=== PATIENT | male | born 1960 | race Caucasian/White ===

== ENCOUNTER 2018-04-24 14:46 | Observation (INO) | payer OTHER ==
[2018-04-24 15:09] VITALS: BP 143/87; PULSE 80; RESP 14; TEMP 98.6; O2SAT 97
[2018-04-24] MEDS ORDERED: DEXAMETHASONE SOD PHOS 4 MG/ML VIAL IM ONE (17:15)
[2018-04-24] MEDS ORDERED: ORPHENADRINE INJ 60 MG/2 ML AMP IM ONE (17:15)
[2018-04-24] MEDS ORDERED: KETOROLAC TROMETHAMINE 60 MG/2 ML (IM) VIAL IM ONE (17:15)
[2018-04-24] MEDS ORDERED: ACETAMINOPHEN/HYDROcodone 325 MG/7.5 MG TAB PO ONE (17:15)
--- NOTE | 2018-04-24 17:20 | PD ---
HPI Chief Complaint: Pain: Acute or Chronic Time Seen by Provider: 16:59 Travel History International Travel<30 days: No Contact w/Intl Traveler<30days: No Traveled to known affect area: No History of Present Illness HPI 57-year-old male with a history of low back pain presents emergency department via EVAC for severe lower back pain that worsened today. Patient says it is located in his lower lumbar spine and has radiation of pain to his left leg. Says this is similar to previous episodes just more severe. Says that a couple days ago he was working and he was forced to sit on a stool for a couple of hours, longer than usual. Says since then his pain has worsened. Says he been able to control his chronic back pain with an inversion table and over-the- counter medications. Says he went to his primary care physician yesterday where he was prescribed oxycodone and given multiple injections into his back. He is not no what these medications are. Says that a couple years ago he was evaluated for possible "cage surgery" but decided to defer. Says he was like an MRI to evaluate for possible disc rupture. Denies fevers, loss of bowel or bladder function, saddle anesthesia, IV drug use, direct trauma. PFSH Past Medical History Medical History: Denies Significant Hx Diminished Hearing: No Past Surgical History Surgical History: No Previous Surgery Social History Alcohol Use: No Tobacco Use: No Substance Use: No Allergies-Medications (Allergen,Severity, Reaction): Coded Allergies: No Known Allergies (Unverified , 04/24/18) Reported Meds & Prescriptions Reported Meds & Active Scripts Active Review of Systems Except as stated in HPI: all other systems reviewed are Neg Physical Exam Narrative GENERAL: Well-developed, well-nourished in mild distress SKIN: Focused skin assessment warm/dry. HEAD: Atraumatic. Normocephalic. EYES: Pupils equal and round. No scleral icterus. No injection or drainage. ENT: No nasal bleeding or discharge. Mucous membranes pink and moist. NECK: Trachea midline. No JVD. CARDIOVASCULAR: Regular rate and rhythm. No murmur appreciated. RESPIRATORY: No accessory muscle use. Clear to auscultation. Breath sounds equal bilaterally. GASTROINTESTINAL: Abdomen soft, non-tender, nondistended. Hepatic and splenic margins not palpable. No CVA tenderness MUSCULOSKELETAL: No obvious deformities. No clubbing. No cyanosis. No edema. NEUROLOGICAL: Awake and alert. No obvious cranial nerve deficits. Motor grossly within normal limits. Normal speech. Grade 5/5 strength lower extremities. BACK:No rash. No point tenderness on palpation of the spine. Mild tenderness to palpation of his right SI joint and says this reproduces his pain. No step- offs or deformities PSYCHIATRIC: Appropriate mood and affect; insight and judgment normal. Data Data Last Documented VS Vital Signs Date Time Temp Pulse Resp B/P (MAP) Pulse Ox O2 Delivery O2 Flow Rate FiO2 04/24/18 15:09 98.6 80 14 143/87 (105) 97 Orders Orders Ketorolac Inj (Toradol Inj) (04/24/18 17:15) Orphenadrine Inj (Norflex Inj) (04/24/18 17:15) Dexamethasone Inj (Decadron Inj) (04/24/18 17:15) Acetamin-Hydrocod 325-7.5 Mg ([place]lin 7.5 (04/24/18 17:15) Ct Lumb Spine W/O Contrast (04/24/18 ) Admit Order (Ed Use Only) (04/24/18 20:26) MDM Medical Decision Making Medical Screen Exam Complete: Yes Emergency Medical Condition: Yes Differential Diagnosis Acute on chronic lumbago, sciatica, lumbar fracture, malingering Narrative Course 57-year-old male presents emergency department via evac for evaluation of acute on chronic low back pain that worsened over the last few days. Vital signs are stable. His exam findings consistent with lumbago with sciatica. No red flag signs or symptoms. Dexamethasone, Toradol, Norflex, hydrocodone administered emergency department for pain. Advised that an MRI is not emergently indicated today. Upon discharge, pt was in severe pain and I decided to order a CT to further evaluate for his back pain. Last Impressions Lumbar Spine CT 04/24/18 0000 Signed Impressions: CONCLUSION: 1. Degenerative spondylosis of the lower lumbar spine most prominently at L4-5 and L5-S1 with resultant mild central canal narrowing at both levels. 2. Moderate right neural foraminal narrowing at L5-S1 secondary to disc osteop hytes. Pt is unable to walk without significant pain. I discussed my attending and patient be admitted for intractable low back pain. I spoke with Dr. Murphy who advised to place the patient under Dr. Flores, his attending. Diagnosis Primary Impression: Lumbago Qualified Codes: M54.42 - Lumbago with sciatica, left side Additional Impression: Intractable low back pain Admitting Information Admitting Physician Requests: Observation Referrals: Mark Hernandez MD, Sohit K. MD Neurologist Neurosurgeon Patient Instructions: Acute Low Back Pain (ED), General Instructions Departure Forms: Tests/Procedures Additional Instructions: Perform light stretches of the lower back and legs, and alternate heat and ice packs. If you develop increased pain, weakness, fever, chills, or bowel or bladder issues, return to the ED for further treatment and evaluation. Follow up with your primary care physician in 2-3 days. Condition: Stable Rosita Higgins Apr 24, 2018 17:20
[2018-04-24] MEDS ORDERED: MEDR4PAK PO (17:23)
[2018-04-24] MEDS ORDERED: ROBA500T PO (17:23)
[2018-04-24] MEDS ORDERED: IBUP1TAB7 PO (17:23)
--- NOTE | 2018-04-24 19:27 | RADRPT ---
EXAM DATE: 04/24/2018 7:19 PM EDT AGE/SEX: 57 years / Male INDICATIONS: Back pain. CLINICAL DATA: This is the patient's initial encounter. Patient reports that signs and symptoms have been present for 3 days and indicates a pain score of 10/10. MEDICAL/SURGICAL HISTORY: None. None. RADIATION DOSE: 39.42 CTDI (mGy) COMPARISON: No prior exams available for comparison. TECHNIQUE: Contiguous axial images were acquired with a multirow detector CT scanner without contras t. Multiplanar reconstructions in the sagittal and coronal plane were also performed. Using automate d exposure control and adjustment of the mA and/or kV according to patient size, radiation dose was k ept as low as reasonably achievable to obtain optimal diagnostic quality images. DICOM format image data is available electronically for review and comparison. FINDINGS: Vertebrae: Normal vertebral body height. Alignment: Normal. No subluxation. Paraspinal Soft Tissues: Unremarkable. No significant adenopathy. Aorta is non-aneurysmal. T12-L1: The thecal sac has a normal diameter. No evidence of disc bulge or protrusion. The neural foramina are patent bilaterally. L1-L2: Minimal diffuse disc bulge without central canal or neural foraminal stenosis. L2-L3: Minimal disc bulge without central canal or neural foraminal stenosis. L3-L4: Small Schmorl's node in the superior endplate of L4. Mild diffuse disc bulge with slight effa cement anterior thecal sac. No significant neural foraminal stenosis. L4-L5: Diffuse disc bulge with slight ligamentum flavum hypertrophy. Effacement anterior thecal sac w ith central canal measuring 10 mm. Minimal caudal bilateral neural foraminal narrowing. L5-S1: Moderate severe disc space narrowing with vacuum disc phenomenon. Posterior disc osteophytes effacing the anterior thecal sac with central canal measuring approximately 10 mm. Mild left and mode rate right neural foraminal narrowing secondary to disc osteophytes. CONCLUSION: 1. Degenerative spondylosis of the lower lumbar spine most prominently at L4-5 and L5-S1 with result ant mild central canal narrowing at both levels. 2. Moderate right neural foraminal narrowing at L5-S1 secondary to disc osteophytes. Electronically signed by: Tim Maki MD 04/24/2018 7:26 PM EDT
[2018-04-24 20:37] VITALS: BP 138/86; PULSE 84; RESP 16; O2SAT 99
[2018-04-24] MEDS ORDERED: ACETAMINOPHEN 325 MG TAB PO PRN ×2 (21:15)
[2018-04-24] MEDS ORDERED: IBUPROFEN 600 MG TAB PO PRN (21:15)
[2018-04-24] MEDS ORDERED: SENNOSIDES 8.6 MG TAB PO PRN (21:15)
[2018-04-24] MEDS ORDERED: NALOXONE HCL 0.4 MG/ML AMP IV PUSH PRN (21:15)
[2018-04-24] MEDS ORDERED: MAGNESIUM HYDROXIDE SUSP 30 ML CUP PO PRN (21:15)
[2018-04-24] MEDS ORDERED: SODIUM CHLORIDE 0.9% FLUSH 10 ML FLUSH IV FLUSH PRN (21:15)
[2018-04-24] MEDS ORDERED: ONDANSETRON ODT 4 MG TAB PO PRN (21:30)
[2018-04-24 22:08] LABS: AUTOMATED NEUTROPHIL # 14.2 TH/MM3 (1.8-7.7); BASOPHIL # 0.1 TH/MM3 (0-0.2); BASOPHIL % 0.4 % (0.0-2.0); EOSINOPHIL % 0.1 % (0.0-4.0); HEMATOCRIT 48.6 % (39.0-51.0); HEMOGLOBIN 16.2 GM/DL (13.0-17.0); LYMPH % 8.4 % (9.0-44.0); LYMPHOCYTE # 1.3 TH/MM3 (1.0-4.8); MEAN CELL VOLUME 84.8 FL (80.0-100.0); MEAN CORPUSCULAR HEMOGLOBIN 28.3 PG (27.0-34.0); MEAN CORPUSCULAR HGB CONC 33.4 % (32.0-36.0); MEAN PLATELET VOLUME 8.1 FL (7.0-11.0); MONO % 2.2 % (0.0-8.0); MONOCYTE # 0.4 TH/MM3 (0-0.9); NEUT % 88.9 % (16.0-70.0); PLATELET COUNT 271 TH/MM3 (150-450); RED BLOOD COUNT 5.73 MIL/MM3 (4.50-5.90); RED CELL DISTRIBUTION WIDTH 14.1 % (11.6-17.2)
[2018-04-24 22:22] LABS: PROTHROMBIN TIME - PATIENT 10.6 SEC (9.8-11.6)
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
[2018-04-24 22:38] LABS: ALBUMIN 3.8 GM/DL (3.4-5.0); AST (GOT) 14 U/L (15-37); BICARBONATE 20.1 MEQ/L (21.0-32.0); BLOOD UREA NITROGEN 29 MG/DL (7-18); CALCIUM 9.3 MG/DL (8.5-10.1); CHLORIDE 110 MEQ/L (98-107); CREATININE 1.78 MG/DL (0.60-1.30); GLOMERULAR FILTRATION RATE 40 ML/MIN (>89); GLUCOSE,RANDOM 111 MG/DL (74-106); SODIUM (NA) 140 MEQ/L (136-145)
[2018-04-24 22:40] LABS: ALT (GPT) 31 U/L (12-78)
[2018-04-24 22:43] LABS: ALKALINE PHOSPHATASE 90 U/L (45-117); TOTAL BILIRUBIN ADULT 0.3 MG/DL (0.2-1.0)
[2018-04-24 23:26] VITALS: BP 134/84; PULSE 60; RESP 16; TEMP 98.5; O2SAT 94
[2018-04-25] MEDS: SODIUM CHLOR 0.9% 1000 ML INJ 1,000 ML IV SCH ×3 (01:21→16:00)
[2018-04-25 03:00] VITALS: BP 131/73; PULSE 63; RESP 17; TEMP 98.2; O2SAT 96
[2018-04-25 07:35] VITALS: BP 144/85; PULSE 67; RESP 18; TEMP 97.8; O2SAT 95
[2018-04-25] MEDS: FAMOTIDINE 20 MG TAB PO SCH ×2 (08:45→20:26)
[2018-04-25] MEDS: SODIUM CHLORIDE 0.9% FLUSH 10 ML FLUSH IV FLUSH SCH ×2 (08:45→20:26)
[2018-04-25] MEDS: GABAPENTIN 300 MG CAP PO SCH ×2 (08:45→20:26)
[2018-04-25] MEDS: DOCUSATE SODIUM 50 MG/SENNA 8.6 MG TAB PO SCH ×2 (08:45→20:26)
[2018-04-25] MEDS ORDERED: MELOXICAM 15 MG TAB PO SCH (09:00)
--- NOTE | 2018-04-25 09:37 | HHI.FPPN ---
Subjective Remarks Patient was seen and evaluated this morning. He reports severe back pain. He denies urinary or bowel incontinence. Patient denies chest pain, heart palpitations, shortness of breath, nausea/ vomiting, diarrhea and constipation. Awaiting neurosurgery consultation. All questions were answered. (Jadyn Gutierrez MD R1) Objective Vitals Vital Signs Date Time Temp Pulse Resp B/P (MAP) Pulse Ox O2 Delivery O2 Flow Rate FiO2 04/25/18 07:35 97.8 67 18 144/85 (104) 95 04/25/18 05:35 14 04/25/18 03:00 98.2 63 17 131/73 (92) 96 04/25/18 02:21 15 04/24/18 23:26 98.5 60 16 134/84 (101) 94 04/24/18 21:50 04/24/18 20:37 84 16 138/86 (103) 99 Room Air 04/24/18 15:09 98.6 80 14 143/87 (105) 97 I/O 04/24/18 04/24/18 04/24/18 04/25/18 04/25/18 04/25/18 07:00 15:00 23:00 07:00 15:00 23:00 Intake Total 40 ml Balance 40 ml Intake Oral 40 ml (Jadyn Gutierrez MD R1) Result Diagram: 04/24/18215404/24/182154 Imaging Last Impressions Orbit X-Ray 04/25/18 Signed Impressions: CONCLUSION: No metal is seen over the orbits. The patient is cleared for an MRI examination . Lumbar Spine MRI 04/25/18 0000 Signed Impressions: CONCLUSION: 1. Moderate left neural foraminal disc protrusion/extrusion at the L4-L5 level abutting the left L4 nerve root. 2. Minimal central disc protrusions at the L4-L5 and L5-S1 levels. 3. Narrowing of the neural foramina at the L5-S1 level secondary to loss of di sc space height and facet hypertrophy. Lumbar Spine CT 04/24/18 0000 Signed Impressions: CONCLUSION: 1. Degenerative spondylosis of the lower lumbar spine most prominently at L4-5 and L5-S1 with resultant mild central canal narrowing at both levels. 2. Moderate right neural foraminal narrowing at L5-S1 secondary to disc osteop hytes. Objective Remarks GENERAL: This is a well-nourished, well-developed, overweight male lying in bed in no apparent distress. In obvious distress when seated. SKIN: No rashes, ecchymoses or lesions. Cool and dry. HEAD: Atraumatic. Normocephalic. EYES: Pupils equal round. Extraocular motions intact. No scleral icterus. No injection or drainage. ENT: Nose without drainage. Throat without erythema, tonsillar hypertrophy or exudate. Uvula midline. Airway patent. NECK: Trachea midline. No JVD or lymphadenopathy. Supple, nontender, no meningeal signs. CARDIOVASCULAR: Regular rate and rhythm without murmurs, gallops, or rubs. RESPIRATORY: Clear to auscultation. Breath sounds equal bilaterally. No wheezes , rales, or rhonchi. GASTROINTESTINAL: Abdomen soft, non-tender, nondistended. No hepato-splenomegaly , or palpable masses. No guarding. MUSCULOSKELETAL: Extremities without clubbing, cyanosis, or edema. No joint tenderness, effusion, or edema noted. No calf tenderness. NEUROLOGICAL: Awake and alert. Cranial nerves II through XII intact. Motor and sensory grossly within normal limits. Five out of 5 muscle strength in all muscle groups. Normal speech. Medications and IVs Current Medications Medications (Trade) Dose Ordered Sig/[place] Route Start Time Stop Time Status Last Admin (NS Flush) 2 ml UNSCH PRN IV FLUSH 04/24/18 21:15 (NS Flush) 2 ml BID IV FLUSH 04/25/18 09:00 (Tylenol) 650 mg Q4H PRN PO 04/24/18 21:15 04/25/18 08:47 (Zofran Odt) 4 mg Q6H PRN PO 04/24/18 21:30 (Narcan Inj) 0.4 mg UNSCH PRN IV PUSH 04/24/18 21:15 (Sheryl-Colace) 1 tab BID PO 04/25/18 09:00 (Milk Of Magnesia Liq) 30 ml Q12H PRN PO 04/24/18 21:15 (Senokot) 17.2 mg Q12H PRN PO 04/24/18 21:15 (Tylenol) 650 mg Q6HR PRN PO 04/24/18 21:15 04/25/18 01:21 (Pepcid) 10 mg BID PO 04/25/18 09:00 04/25/18 08:45 Sodium Chloride 1,000 ml @ 125 mls/hr Q8H IV 04/25/18 00:00 04/25/18 08:46 (Mobic) 15 mg DAILY PO 04/25/18 09:00 04/25/18 08:45 (Neurontin) 300 mg BID PO 04/25/18 09:00 04/25/18 08:45 (Percocet 5-325 Mg) 1 tab Q4H PRN PO 04/25/18 08:15 (Jadyn Gutierrez MD R1) Urinary Catheter: No (Jadyn Gutierrez MD R1) Vascular Central Line Catheter: No (Jadyn Gutierrez MD R1) A/P Assessment and Plan Patient is a 57 year old male with chronic low back pain >20 years and possible HTN with acute exacerbation of low back pain and CT showing degenerative spondylosis with mild central canal narrowing at L4-5 and L5-S1 as well as moderate right neural foramen narrowing 2/2 osteophytes. There is no saddle anesthesia or overt incontinence. Patient admitted for observation due to inability to ambulate earlier today. Neurosurgery, Dr Shell, has been consulted. Discharge Planning Clinical improvement. (Jadyn Gutierrez MD R1) Problem List: (1) Spondylosis of lumbar spine ICD Codes: M47.816 - Spondylosis without myelopathy or radiculopathy, lumbar region Plan: CT showing degenerative spondylosis with mild central canal narrowing L4- 5, L5-S1. Patient states he's had low back pain >20 years now and this is the worst exacerbation he's ever had. Pain is 5/10 while supine and 10/10 when standing or ambulating. On admission: * CBC with WBC 16.0, likely 2/2 steroid treatments. * CMP with Cr 1.78. Imaging: * CT Head 04/24: Degenerative spondylosis of the lower lumbar spine most prominently at L4-5 and L5-S1 with resultant mild central canal narrowing at both levels. Moderate right neural foraminal narrowing at L5-S1 secondary to disc osteophytes. * MRI Brain 04/25: Moderate left neural foraminal disc protrusion/extrusion at the L4-L5 level abutting the left L4 nerve root. Minimal central disc protrusions at the L4-L5 and L5-S1 levels. Narrowing of the neural foramina at the L5-S1 level secondary to loss of disc space height and facet hypertrophy. Consults: * Neurosurgery. Awaiting recommendations. Orders: * PT eval and treat. Medications: * Methylprednisolone 8mg PO TID. * Tylenol 650mg q6h PRN pain/fever. * Oxycodone 5mg q6h PRN breakthrough pain. (2) Intractable low back pain ICD Codes: M54.5 - Low back pain Status: Acute Plan: Plan as above. (3) Sciatica of left side associated with disorder of lumbosacral spine ICD Codes: M53.87 - Other specified dorsopathies, lumbosacral region Plan: Plan as above. (4) ZAHEER (acute kidney injury) ICD Codes: N17.9 - Acute kidney failure, unspecified Status: Acute Plan: Patient describes taking both ibuprofen and motrin simultaneously ("3 pills at a time") without appreciable pain relief. Cr 1.78. Likely NSAID-induced ZAHEER. There are no other visits to assess whether this is an acute vs chronic issue; however, patient describes recent increased NSAID intake within the last 4-5 days. Medications: * Avoid NSAIDS (1 dose Toradol given in ED). * Renally dose medications. * MIVF with NS @ 125mls/hr. (5) FEN/GI/PPx Plan: Fluids: * NS at 125 ml/hr. Electrolytes: * Monitor and replete as necessary. Nutrition: * Regular diet. DVT Prophylaxis: * SCDs. * Heparin 5,000 units SQ q8hr. (Jadyn Gutierrez MD R1) Problem List: (1) Spondylosis of lumbar spine ICD Codes: M47.816 - Spondylosis without myelopathy or radiculopathy, lumbar region Plan: CT showing degenerative spondylosis with mild central canal narrowing L4- 5, L5-S1. Patient states he's had low back pain >20 years now and this is the worst exacerbation he's ever had. Pain is 5/10 while supine and 10/10 when standing or ambulating. On admission: * CBC with WBC 16.0, likely 2/2 steroid treatments. * CMP with Cr 1.78. Imaging: * CT Head 04/24: Degenerative spondylosis of the lower lumbar spine most prominently at L4-5 and L5-S1 with resultant mild central canal narrowing at both levels. Moderate right neural foraminal narrowing at L5-S1 secondary to disc osteophytes. * MRI Brain 04/25: Moderate left neural foraminal disc protrusion/extrusion at the L4-L5 level abutting the left L4 nerve root. Minimal central disc protrusions at the L4-L5 and L5-S1 levels. Narrowing of the neural foramina at the L5-S1 level secondary to loss of disc space height and facet hypertrophy. Consults: * Neurosurgery. Awaiting recommendations. Orders: * PT eval and treat. Medications: * Methylprednisolone 8mg PO TID. * Tylenol 650mg q6h PRN pain/fever. * Oxycodone 5mg q6h PRN breakthrough pain. (2) Intractable low back pain ICD Codes: M54.5 - Low back pain Status: Acute Plan: Plan as above. (3) Sciatica of left side associated with disorder of lumbosacral spine ICD Codes: M53.87 - Other specified dorsopathies, lumbosacral region Plan: Plan as above. (4) ZAHEER (acute kidney injury) ICD Codes: N17.9 - Acute kidney failure, unspecified Status: Acute Plan: Patient describes taking both ibuprofen and motrin simultaneously ("3 pills at a time") without appreciable pain relief. Cr 1.78. Likely NSAID-induced ZAHEER. There are no other visits to assess whether this is an acute vs chronic issue; however, patient describes recent increased NSAID intake within the last 4-5 days. Medications: * Avoid NSAIDS (1 dose Toradol given in ED). * Renally dose medications. * MIVF with NS @ 125mls/hr. (5) FEN/GI/PPx Plan: Fluids: * NS at 125 ml/hr. Electrolytes: * Monitor and replete as necessary. Nutrition: * Regular diet. DVT Prophylaxis: * SCDs. * Heparin 5,000 units SQ q8hr. * See the residents documentation for details. I saw and evaluated the patient regarding the danielson portions of this evaluation and agree with the residents findings and plans as written. Parts of this note were created using [employer] voice recognition software program. While efforts were made to correct any mistakes made by this software, some mistakes, errors, and omissions may remain in the final note that were not caught when the note was originally created. Plan of care was discussed and agreed upon with the patient as specifically documented in the above note. An opportunity to ask questions with explanation was provided. Patient voiced understanding on all information reviewed and discussed. (Jordan Flores MD) Jadyn Gutierrez MD R1 Apr 25, 2018 09:37 Jordan Flores MD Apr 26, 2018 10:45
--- NOTE | 2018-04-25 10:25 | RADRPT ---
EXAM DATE: 04/25/2018 10:15 AM EDT AGE/SEX: 57 years / Male INDICATIONS: MRI clearance. CLINICAL DATA: This is the patient's initial encounter. Patient reports that signs and symptoms have been present for 1 day and indicates a pain score of 0/10. MEDICAL/SURGICAL HISTORY: None. None. COMPARISON: No prior exams available for comparison. FINDINGS: Examination of the orbits was performed. There is no evidence of fracture involving the bony structu res surrounding the orbits. The maxillary sinuses appear to be well aerated. No radiopaque foreign bodies are seen in the soft tissues. CONCLUSION: No metal is seen over the orbits. The patient is cleared for an MRI examination. Electronically signed by: Krishan Oropeza MD 04/25/2018 10:24 AM EDT
--- NOTE | 2018-04-25 10:59 | RADRPT ---
EXAM DATE: 04/25/2018 10:45 AM EDT AGE/SEX: 57 years / Male INDICATIONS: . Back pain radiating to left leg. CLINICAL DATA: This is the patient's initial encounter. Patient reports that signs and symptoms have been present for 3 days and indicates a pain score of 8/10. MEDICAL/SURGICAL HISTORY: None. Appendectomy. COMPARISON: No prior exams available for comparison. TECHNIQUE: Multiplanar, multisequence MRI of the lumbar spine was performed without contrast. Patie nt was scanned in a sitting position; neutral, flexion, and extension scans were performed in the sa gittal plane. FINDINGS: Vertebra: Homogeneous signal. Normal alignment. Conus: Normal level and configuration. T12-L1: The thecal sac has a normal diameter. No evidence of disc bulge or protrusion. The neural foramina are patent bilaterally. L1-L2: The thecal sac has a normal diameter. No evidence of disc bulge or protrusion. The neural foramina are patent bilaterally. L2-L3: The thecal sac has a normal diameter. No evidence of disc bulge or protrusion. The neural foramina are patent bilaterally. L3-L4: The thecal sac has a normal diameter. No evidence of disc bulge or protrusion. The neural foramina are patent bilaterally. L4-L5: There is a moderate left neural foraminal disc protrusion/extrusion abutting the exiting lef t L4 nerve root. This measures 1.2 x 0.8 cm. In addition, there is a minimal central disc protrusion without significant stenosis. The thecal sac is not significantly narrowed. The right neural foramina is patent. L5-S1: The disc touches decreased height. There is a minimal central disc protrusion causing very m inimal impression on the anterior epidural space. Significant narrowing of the thecal sac is not seen . There is mild facet hypertrophy. The loss of disc space height and facet hypertrophy cause narrowin g of the neural foramina bilaterally. CONCLUSION: 1. Moderate left neural foraminal disc protrusion/extrusion at the L4-L5 level abutting the left L4 nerve root. 2. Minimal central disc protrusions at the L4-L5 and L5-S1 levels. 3. Narrowing of the neural foramina at the L5-S1 level secondary to loss of disc space height and fa cet hypertrophy. Electronically signed by: Krishan Oropeza MD 04/25/2018 10:58 AM EDT
[2018-04-25 11:09] VITALS: BP 149/83; PULSE 72; RESP 20; TEMP 97.6; O2SAT 95
[2018-04-25] MEDS: oxyCODONE/ACETAMINOPHEN 5 MG/325 MG TAB PO PRN ×2 (12:38→22:14)
--- NOTE | 2018-04-25 13:08 | PD.CONS ---
History of Present Illness Service Neurosurgery Consult Requested By Hospitalist Reason for Consult Low back pain with radiculopathy Primary Care Physician Corona Ulrich MD Diagnoses: History of Present Illness 57-year-old obese gentleman with a chronic history of low back pain with intermittent exacerbations and radiculopathy over the past 20 years. He is undergone lumbar epidural steroid injection several years ago which helped him. He has been using an inversion table for periodic exacerbations over the years along with as needed nonsteroidal anti-inflammatory pain medications. He relates pain exacerbated several days ago in the back and radiation the left lateral thigh and calf down to the ankle. At one point he felt like he lost control his urine but denies any praveen bowel bladder incontinence or any numbness in his legs. He denies any right lower extremity symptoms. He relates the pain is worse when he stands or walks. Workup including CT and MRI scan lumbar spine reveals severe L5-S1 disc degeneration with facet arthropathy and foraminal stenosis. There is also far lateral L4-5 disc protrusion left side with foraminal stenosis. He has been admitted for pain control by the medical service and neurosurgery consultation requested. He also relates to me that several years ago he was seen by a spinal surgeon and recommended fusion operation which he wants to avoid. Review of Systems Constitutional: DENIES: Diaphoretic episodes, Fatigue, Fever, Weight gain, Weight loss, Chills, Dizziness, Change in appetite, Night Sweats Endocrine: DENIES: Heat/cold intolerance, Polydipsia, Polyuria, Polyphagia Eyes: DENIES: Blurred vision, Diplopia, Eye inflammation, Eye pain, Vision loss , Photosensitivity, Double Vision Ears, nose, mouth, throat: DENIES: Tinnitus, Hearing loss, Vertigo, Nasal discharge, Oral lesions, Throat pain, Hoarseness, Ear Pain, Running Nose, Epistaxis, Sinus Pain, Toothache, Odynophagia Respiratory: DENIES: Apneas, Cough, Snoring, Wheezing, Hemoptysis, Sputum production, Shortness of breath Cardiovascular: DENIES: Chest pain, Palpitations, Syncope, Dyspnea on Exertion , PND, Lower Extremity Edema, Orthopnea, Claudication Gastrointestinal: DENIES: Abdominal pain, Black stools, Bloody stools, Constipation, Diarrhea, Nausea, Vomiting, Difficulty Swallowing, Anorexia Genitourinary: COMPLAINS OF: Urgency, DENIES: Sexual dysfunction, Urinary frequency, Urinary incontinence, Hematuria, Dysuria, Nocturia, Penile Discharge , Testicular Pain, Testicular Swelling Musculoskeletal: COMPLAINS OF: Muscle aches, Stiffness, Back pain, DENIES: Joint pain, Joint Swelling, Neck pain Integumentary: DENIES: Abnormal pigmentation, Nail changes, Pruritus, Rash Hematologic/lymphatic: DENIES: Bruising, Lymphadenopathy Immunologic/allergic: DENIES: Eczema, Urticaria Neurologic: DENIES: Abnormal gait, Headache, Localized weakness, Paresthesias, Seizures, Speech Problems, Tremor, Poor Balance Psychiatric: DENIES: Anxiety, Confusion, Mood changes, Depression, Hallucinations, Agitation, Suicidal Ideation, Homicidal Ideation, Delusions Except as stated in HPI: all other systems reviewed are Neg Past Family Social History Allergies: Coded Allergies: No Known Allergies (Unverified , 04/24/18) Past Medical History Chronic low back pain from L5-S1 disc degeneration; hypertension; appendectomy Reported Medications Nonsteroidal antiinflammatory as needed use Social History He is and works in a [employer]. Drinks alcohol on social basis and does not smoke. Physical Exam Vital Signs Vital Signs Date Time Temp Pulse Resp B/P (MAP) Pulse Ox O2 Delivery O2 Flow Rate FiO2 04/25/18 11:09 97.6 72 20 149/83 (105) 95 04/25/18 09:52 18 04/25/18 07:35 97.8 67 18 144/85 (104) 95 04/25/18 05:35 14 04/25/18 03:00 98.2 63 17 131/73 (92) 96 04/25/18 02:21 15 04/24/18 23:26 98.5 60 16 134/84 (101) 94 04/24/18 21:50 04/24/18 20:37 84 16 138/86 (103) 99 Room Air 04/24/18 15:09 98.6 80 14 143/87 (105) 97 Physical Exam GENERAL: This is a well-nourished, well-developed patient, in no apparent distress. SKIN: No rashes, ecchymoses or lesions. Cool and dry. HEAD: Atraumatic. Normocephalic. No temporal or scalp tenderness. EYES: Pupils equal round and reactive. Extraocular motions intact. No scleral icterus. No injection or drainage. ENT: Nose without bleeding, purulent drainage or septal hematoma. Throat without erythema, tonsillar hypertrophy or exudate. Uvula midline. Airway patent. NECK: Trachea midline. No JVD or lymphadenopathy. Supple, nontender, no meningeal signs. CARDIOVASCULAR: Regular rate and rhythm without murmurs, gallops, or rubs. RESPIRATORY: Clear to auscultation. Breath sounds equal bilaterally. No wheezes , rales, or rhonchi. GASTROINTESTINAL: Abdomen soft, non-tender, nondistended. No hepato-splenomegaly , or palpable masses. No guarding. MUSCULOSKELETAL: Extremities without clubbing, cyanosis, or edema. No joint tenderness, effusion, or edema noted. No calf tenderness. Negative Homans sign bilaterally. NEUROLOGICAL: Awake and alert. Cranial nerves II through XII intact. Motor and sensory grossly within normal limits. Five out of 5 muscle strength in all muscle groups. Normal speech. Laboratory Laboratory Tests Test 04/24/18 21:55 White Blood Count 16.0 Red Blood Count 5.73 Hemoglobin 16.2 Hematocrit 48.6 Mean Corpuscular Volume 84.8 Mean Corpuscular Hemoglobin 28.3 Mean Corpuscular Hemoglobin Concent 33.4 Red Cell Distribution Width 14.1 Platelet Count 271 Mean Platelet Volume 8.1 Neutrophils (%) (Auto) 88.9 Lymphocytes (%) (Auto) 8.4 Monocytes (%) (Auto) 2.2 Eosinophils (%) (Auto) 0.1 Basophils (%) (Auto) 0.4 Neutrophils # (Auto) 14.2 Lymphocytes # (Auto) 1.3 Monocytes # (Auto) 0.4 Eosinophils # (Auto) 0.0 Basophils # (Auto) 0.1 CBC Comment DIFF FINAL Differential Comment Prothrombin Time 10.6 Prothromb Time International Ratio 1.0 Blood Urea Nitrogen 29 Creatinine 1.78 Random Glucose 111 Total Protein 7.0 Albumin 3.8 Calcium Level 9.3 Alkaline Phosphatase 90 Aspartate Amino Transf (AST/SGOT) 14 Alanine Aminotransferase (ALT/SGPT) 31 Total Bilirubin 0.3 Sodium Level 140 Potassium Level 4.0 Chloride Level 110 Carbon Dioxide Level 20.1 Anion Gap 10 Estimat Glomerular Filtration Rate 40 Result Diagram: 04/24/18215404/24/182154 Imaging Last Impressions Orbit X-Ray 04/25/18 0000 Signed Impressions: CONCLUSION: No metal is seen over the orbits. The patient is cleared for an MRI examination . Lumbar Spine MRI 04/25/18 0000 Signed Impressions: CONCLUSION: 1. Moderate left neural foraminal disc protrusion/extrusion at the L4-L5 level abutting the left L4 nerve root. 2. Minimal central disc protrusions at the L4-L5 and L5-S1 levels. 3. Narrowing of the neural foramina at the L5-S1 level secondary to loss of di sc space height and facet hypertrophy. Lumbar Spine CT 04/24/18 0000 Signed Impressions: CONCLUSION: 1. Degenerative spondylosis of the lower lumbar spine most prominently at L4-5 and L5-S1 with resultant mild central canal narrowing at both levels. 2. Moderate right neural foraminal narrowing at L5-S1 secondary to disc osteop hytes. Assessment and Plan Assessment and Plan 57-year-old obese gentleman with a chronic history of low back pain for the past 20 years. He relates that intermittent exacerbations with the radiculopathy has had traction with inversion table, lumbar epidural steroid injections as well as therapy in the past. He has an acute exacerbation of the low back pain with radiation into the left lateral thigh and calf down to the ankle the past several days without any numbness or weakness. He denies any praveen incontinence of any right lower extremity symptoms. CT and MRI scan of the lumbar spine reveal L5-S1 severe disc degeneration with facet arthropathy and moderate foraminal stenosis bilaterally. He also has a lateral disc protrusion at the left L4-5 level with moderate foraminal stenosis. Discussed the treatment options including continued conservative management with physical therapy and pain management as well as surgical intervention. He prefers continued conservative management and will have him undergo lumbar epidural steroid injection per special procedures. Encouraged to increase activity and ambulation with physical therapy involvement. Pavan Fung MD Apr 25, 2018 13:08
[2018-04-25] MEDS: methylPREDNISolone 4 MG TAB PO SCH ×2 (13:26→18:43)
[2018-04-25] MEDS ORDERED: SODIUM CHLORIDE 0.9% INJ 10 ML ONE (14:27)
[2018-04-25] MEDS ORDERED: DEXAMETHASONE SOD PHOS PF 10 MG/ML VIAL ONE (14:27)
[2018-04-25] MEDS ORDERED: BUPIVACAINE HCL PF 0.75% 30 ML VIAL ONE (14:27)
[2018-04-25] MEDS ORDERED: STERILE WATER FOR INJECTION 10 ML VIAL ONE (14:47)
--- NOTE | 2018-04-25 14:55 | PD.RAD ---
Post Procedure Progress Note Procedure Date: Apr 25, 2018 Supervising Radiologist: Tim Maki Proceduralist/Assist: Vamshi Lau RT(R) Anesthesia: Local Plan of Activity Patient to Unit: Nursing Unit Patient Condition: Good See PACS Report for procedural detail/treatment Tim Maki MD Apr 25, 2018 14:55
[2018-04-25 16:05] VITALS: BP 125/67; PULSE 70; RESP 18; TEMP 98.8; O2SAT 95
[2018-04-25] MEDS: HEPARIN SODIUM - SQ 10,000 UNITS/ML VIAL SQ SCH (16:20)
--- NOTE | 2018-04-25 16:47 | RADRPT ---
EXAM DATE: 04/25/2018 3:08 PM EDT AGE/SEX: 57 years / Male INDICATIONS: Patient presents with severe pain in lower back. CLINICAL DATA: This is the patient's initial encounter. Patient reports that signs and symptoms have been present for 4 - 6 days and indicates a pain score of 10/10. MEDICAL/SURGICAL HISTORY: Hypertension. Chronic Lower back pain Appendectomy. COMPARISON: No prior exams available for comparison. FLUORO TIME (min): 1.5 IMAGE SERIES: ACCESS SITE: Left L5 S1 MEDICATION(S): 3cc Sensorcaine 1cc Dexamethasone 1cc Sodium Chloride RESPONSE: Pain Score Pre Procedure: 10/10 Pain Score Post Procedure: 8/10 . . PROCEDURE: 1. Fluoroscopically guided epidural injection. The risks, benefits and alternatives to the procedure were explained and verbal and written consent w as obtained. The site was prepped in sterile fashion. Full sterile technique was used, including ca p, mask, sterile gloves and gown and a large sterile sheet. Hand hygiene and 2% chlorhexidine and/or betadine/alcohol prep was utilized per protocol for cutaneous antisepsis. The skin and subcutaneous tissues were infiltrated with local anesthetic solution. With fluoroscopic guidance the targeted epidural space was localized and positive contrast was inject ed to confirm epidural spread. Following this the prescribed medication was injected surrounding the space. The patient's preprocedure pain and post procedure pain levels were recorded. CONCLUSION: 1. Uncomplicated fluoroscopically guided epidural injection as above. Electronically signed by: Tim Maki MD 04/25/2018 4:46 PM EDT
[2018-04-25 17:42] LABS: BICARBONATE 24.1 MEQ/L (21.0-32.0); CALCIUM 9.1 MG/DL (8.5-10.1); CREATININE 1.66 MG/DL (0.60-1.30)
[2018-04-25 19:23] VITALS: BP 135/66; PULSE 70; RESP 16; TEMP 98.2; O2SAT 95
[2018-04-25 23:28] VITALS: BP 117/64; PULSE 60; RESP 18; TEMP 98.3; O2SAT 95
[2018-04-26] MEDS: SODIUM CHLOR 0.9% 1000 ML INJ 1,000 ML IV SCH ×3 (00:10→18:44)
[2018-04-26] MEDS: HEPARIN SODIUM - SQ 10,000 UNITS/ML VIAL SQ SCH ×3 (00:10→18:44)
[2018-04-26 03:58] VITALS: BP 123/69; PULSE 51; RESP 17; TEMP 98.7; O2SAT 96
[2018-04-26] MEDS: oxyCODONE/ACETAMINOPHEN 5 MG/325 MG TAB PO PRN ×3 (06:49→20:15)
[2018-04-26 07:28] VITALS: BP 126/80; PULSE 54; RESP 18; TEMP 97.4; O2SAT 95
[2018-04-26] MEDS ORDERED: CYCLOBENZAPRINE HCL 10 MG TAB PO PRN (09:15)
[2018-04-26] MEDS ORDERED: PILL SPLITTER OTHER PRN (09:30)
[2018-04-26] MEDS: SODIUM CHLORIDE 0.9% FLUSH 10 ML FLUSH IV FLUSH SCH ×2 (09:43→20:15)
[2018-04-26] MEDS: FAMOTIDINE 20 MG TAB PO SCH ×2 (09:44→20:13)
[2018-04-26] MEDS: GABAPENTIN 300 MG CAP PO SCH ×2 (09:44→18:44)
[2018-04-26] MEDS: DOCUSATE SODIUM 50 MG/SENNA 8.6 MG TAB PO SCH ×2 (09:44→20:13)
--- NOTE | 2018-04-26 10:10 | HHI.NSPN ---
(Toni Dacosta) History Chief Complaint: Severe left leg pain. (Toni Dacosta) Interval History 57-year-old obese gentleman with a chronic history of low back pain with intermittent exacerbations and radiculopathy over the past 20 years. He is undergone lumbar epidural steroid injection several years ago which helped him. He has been using an inversion table for periodic exacerbations over the years along with as needed nonsteroidal anti-inflammatory pain medications. He relates pain exacerbated several days ago in the back and radiation the left lateral thigh and calf down to the ankle. At one point he felt like he lost control his urine but denies any praveen bowel bladder incontinence or any numbness in his legs. He denies any right lower extremity symptoms. He relates the pain is worse when he stands or walks. Workup including CT and MRI scan lumbar spine reveals severe L5-S1 disc degeneration with facet arthropathy and foraminal stenosis. There is also far lateral L4-5 disc protrusion left side with foraminal stenosis. He has been admitted for pain control by the medical service and neurosurgery consultation requested. He also relates to me that several years ago he was seen by a spinal surgeon and recommended fusion operation which he wants to avoid. 04/26/18: Pt had an MIAH yesterday and states this brought his pain down to a 4/ 10 and he was able to get oob and walk. Today he states he tried to get oob and his pain is at the same intensity as it was when he came in. He states it feels like nothing has changed. He complains of severe pain in the left hip radiating into the left lateral leg to the left ankle. He denies any weakness just significant restriction with ambulation secondary to pain.He states he had numbness in his leg after the injection but that has resolved today. He denies praveen incontinence of bladder and states he has not had a bm. (Toni Dacosta) Review of Systems General: Negative for: fever, chills, insomnia Respiratory: Negative for: shortness of breath, cough, sputum Cardiovascular: Negative for: chest pain Gastrointestinal: Negative for: nausea, vomitting, diarrhea, constipation ( Toni Dacosta) Exam Results Vital Signs Date Time Temp Pulse Resp B/P (MAP) Pulse Ox O2 Delivery O2 Flow Rate FiO2 04/26/18 07:28 97.4 54 18 126/80 (95) 95 04/24/18 20:37 Room Air (Toni Dacosta) Physical Examination General: Resting in bed complaining of severe left lateral leg pain. Eyes: Pupils equal. Sclera anicteric. Resp: CTA bilaterally. Heart: NSR no murmurs Abd: Soft positive bs Skin: No cyanosis or erythema. Muscle: Moves LEs with good strength. Neuro: P (Toni Dacosta) Lab, Micro, Other Results Last Impressions Orbit X-Ray 04/25/18 0000 Signed Impressions: CONCLUSION: No metal is seen over the orbits. The patient is cleared for an MRI examination . Lumbar Spine MRI 04/25/18 0000 Signed Impressions: CONCLUSION: 1. Moderate left neural foraminal disc protrusion/extrusion at the L4-L5 level abutting the left L4 nerve root. 2. Minimal central disc protrusions at the L4-L5 and L5-S1 levels. 3. Narrowing of the neural foramina at the L5-S1 level secondary to loss of di sc space height and facet hypertrophy. Epidural Injection 04/25/18 0000 Signed Impressions: CONCLUSION: 1. Uncomplicated fluoroscopically guided epidural injection as above. Lumbar Spine CT 04/24/18 0000 Signed Impressions: CONCLUSION: 1. Degenerative spondylosis of the lower lumbar spine most prominently at L4-5 and L5-S1 with resultant mild central canal narrowing at both levels. 2. Moderate right neural foraminal narrowing at L5-S1 secondary to disc osteop hytes. Laboratory Tests Test 04/25/18 17:00 Blood Urea Nitrogen 32 MG/DL Creatinine 1.66 MG/DL Random Glucose 105 MG/DL Calcium Level 9.1 MG/DL Sodium Level 144 MEQ/L Potassium Level 4.0 MEQ/L Chloride Level 110 MEQ/L Carbon Dioxide Level 24.1 MEQ/L Anion Gap 10 MEQ/L Estimat Glomerular Filtration Rate 43 ML/MIN (Toni Dacosta) Medical Decision Making Impression and Plan A: 57-year-old obese gentleman with a chronic history of low back pain for the past 20 years. He relates that intermittent exacerbations with the radiculopathy has had traction with inversion table, lumbar epidural steroid injections as well as therapy in the past. He has an acute exacerbation of the low back pain with radiation into the left lateral thigh and calf down to the ankle the past several days without any numbness or weakness. He denies any praveen incontinence of any right lower extremity symptoms. CT and MRI scan of the lumbar spine reveal L5-S1 severe disc degeneration with facet arthropathy and moderate foraminal stenosis bilaterally. He also has a lateral disc protrusion at the left L4-5 level with moderate foraminal stenosis. P: Pt states the MIAH helped yesterday but today his pain is back to the same severity that it was when he came to the ER. He states he cannot function with his pain being this high and states he was unable to ambulate at all today with his pain. He wants to continue for now with time but states if his pain does not improve today or tomorrow morning he would want to proceed with surgical intervention. He states he cannot function including walking with his pain being this bad. He states he discussed treatment options with Dr. Fung and he if he elects to proceed with surgery he is wanting a microdiscectomy/ foraminotomy procedure and states he understands he would have DDD at the L5/S1 level with foraminal stenosis that could contribute to his pain but would like to proceed with a more minimally invasive approach and see how he does. We will see how he does today. (Toni Dacosta) Attending Statement The exam, history, and the medical decision-making described in the above note were completed with the assistance of the mid-level provider. I reviewed and agree with the findings presented. I attest that I had a [id number] encounter with the patient on the same day, and personally performed and documented my assessment and findings in the medical record. Patient relates that he still has severe pain rating down the left leg along with back pain despite epidural steroid injections especially when he sits up or attempts to go to the bathroom. Discussed the option of a left L4-5 far lateral microdiscectomy along with risks and benefits involved. He relates he wants to proceed with surgery as this is the worst pain he has ever had any cannot ambulate. Accordingly we will schedule surgery for tomorrow. (Pavan Fung MD) Toni Dacosta Apr 26, 2018 10:10 Pavan Fung MD Apr 26, 2018 18:13
[2018-04-26 11:43] VITALS: BP 135/76; PULSE 73; RESP 18; TEMP 97.9; O2SAT 96
[2018-04-26] MEDS ORDERED: methylPREDNISolone 4 MG TAB PO ONE (12:00)
--- NOTE | 2018-04-26 13:47 | HHI.FPPN ---
Subjective Remarks Patient was seen and evaluated this morning. He reports sleeping well. While laying supine, patient rates pain 3-4/10. When sitting pain quickly worsens. Patient in agony after walking a few feet. Patient denies chest pain, heart palpitations, shortness of breath, nausea/vomiting, diarrhea and constipation. All questions were answered. (Jadyn Gutierrez MD R1) Objective Vitals Vital Signs Date Time Temp Pulse Resp B/P (MAP) Pulse Ox O2 Delivery O2 Flow Rate FiO2 04/26/18 11:43 97.9 73 18 135/76 (95) 96 04/26/18 07:28 97.4 54 18 126/80 (95) 95 04/26/18 03:58 98.7 51 17 123/69 (87) 96 04/25/18 23:28 98.3 60 18 117/64 (81) 95 04/25/18 23:14 15 04/25/18 19:23 98.2 70 16 135/66 (89) 95 04/25/18 16:05 98.8 70 18 125/67 (86) 95 I/O 04/25/18 04/25/18 04/25/18 04/26/18 04/26/18 04/26/18 07:00 15:00 23:00 07:00 15:00 23:00 Intake Total 40 ml Balance 40 ml Intake Oral 40 ml (Jadyn Gutierrez MD R1) Result Diagram: 04/24/185 04/25/18 1700 Imaging Last Impressions Orbit X-Ray 04/25/18 0000 Signed Impressions: CONCLUSION: No metal is seen over the orbits. The patient is cleared for an MRI examination . Lumbar Spine MRI 04/25/18 0000 Signed Impressions: CONCLUSION: 1. Moderate left neural foraminal disc protrusion/extrusion at the L4-L5 level abutting the left L4 nerve root. 2. Minimal central disc protrusions at the L4-L5 and L5-S1 levels. 3. Narrowing of the neural foramina at the L5-S1 level secondary to loss of di sc space height and facet hypertrophy. Epidural Injection 04/25/18 0000 Signed Impressions: CONCLUSION: 1. Uncomplicated fluoroscopically guided epidural injection as above. Lumbar Spine CT 04/24/18 0000 Signed Impressions: CONCLUSION: 1. Degenerative spondylosis of the lower lumbar spine most prominently at L4-5 and L5-S1 with resultant mild central canal narrowing at both levels. 2. Moderate right neural foraminal narrowing at L5-S1 secondary to disc osteop hytes. Objective Remarks GENERAL: This is a well-nourished, well-developed, overweight male lying in bed in no apparent distress. In obvious distress when seated and while walking. SKIN: No rashes, ecchymoses or lesions. Cool and dry. HEAD: Atraumatic. Normocephalic. EYES: Pupils equal round. Extraocular motions intact. No scleral icterus. No injection or drainage. ENT: Nose without drainage. Throat without erythema, tonsillar hypertrophy or exudate. Uvula midline. Airway patent. NECK: Trachea midline. No JVD or lymphadenopathy. Supple, nontender, no meningeal signs. CARDIOVASCULAR: Regular rate and rhythm without murmurs, gallops, or rubs. RESPIRATORY: Clear to auscultation. Breath sounds equal bilaterally. No wheezes , rales, or rhonchi. GASTROINTESTINAL: Abdomen soft, non-tender, nondistended. No hepato-splenomegaly , or palpable masses. No guarding. MUSCULOSKELETAL: Extremities without clubbing, cyanosis, or edema. No joint tenderness, effusion, or edema noted. No calf tenderness. NEUROLOGICAL: Awake and alert. Cranial nerves II through XII intact. Motor and sensory grossly within normal limits. Five out of 5 muscle strength in all muscle groups. Normal speech. Medications and IVs Current Medications Medications (Trade) Dose Ordered Sig/[place]ese[place] Route Start Time Stop Time Status Last Admin (NS Flush) 2 ml UNSCH PRN IV FLUSH 04/24/18 21:15 (NS Flush) 2 ml BID IV FLUSH 04/25/18 09:00 04/26/18 09:43 (Tylenol) 650 mg Q4H PRN PO 04/24/18 21:15 04/25/18 08:47 (Zofran Odt) 4 mg Q6H PRN PO 04/24/18 21:30 (Narcan Inj) 0.4 mg UNSCH PRN IV PUSH 04/24/18 21:15 (Sheryl-Colace) 1 tab BID PO 04/25/18 09:00 04/26/18 09:44 (Milk Of Magnesia Liq) 30 ml Q12H PRN PO 04/24/18 21:15 (Senokot) 17.2 mg Q12H PRN PO 04/24/18 21:15 (Tylenol) 650 mg Q6HR PRN PO 04/24/18 21:15 04/25/18 01:21 (Pepcid) 10 mg BID PO 04/25/18 09:00 04/26/18 09:44 Sodium Chloride 1,000 ml @ 125 mls/hr Q8H IV 04/25/18 00:00 04/26/18 09:43 (Percocet 5-325 Mg) 1 tab Q4H PRN PO 04/25/18 08:15 04/26/18 06:49 (Heparin Inj) 5,000 units Q8H SQ 04/25/18 16:00 04/26/18 23:00 04/26/18 09:43 (Neurontin) 300 mg TID PO 04/26/18 13:00 04/26/18 09:44 (Flexeril) 5 mg Q8H PRN PO 04/26/18 09:15 (Medrol) 8 mg BID PO 04/26/18 21:00 (Pill Splitter) 1 ea UNSCH PRN OTHER 04/26/18 09:30 (Jadyn Gutierrez MD R1) Urinary Catheter: No (Jadyn Gutierrez MD R1) Vascular Central Line Catheter: No (Jadyn Gutierrez MD R1) A/P Assessment and Plan Patient is a 57 year old male with chronic low back pain >20 years and possible HTN with acute exacerbation of low back pain and CT showing degenerative spondylosis with mild central canal narrowing at L4-5 and L5-S1 as well as moderate right neural foramen narrowing 2/2 osteophytes. There is no saddle anesthesia or overt incontinence. Patient admitted for observation due to inability to ambulate earlier today. Neurosurgery, Dr Shell, has been consulted. Discharge Planning Clinical improvement. (Jadyn Gutierrez MD R1) Problem List: (1) Spondylosis of lumbar spine ICD Codes: M47.816 - Spondylosis without myelopathy or radiculopathy, lumbar region Plan: CT showing degenerative spondylosis with mild central canal narrowing L4- 5, L5-S1. Patient states he's had low back pain >20 years now and this is the worst exacerbation he's ever had. Pain is 5/10 while supine and 10/10 when standing or ambulating. Pain is located in back and shooting down left leg. Patient had epidural injection on 04/25. 04/26: Pain improved while laying supine but pain worsens when sitting and patient in agony when walking. On admission: * CBC with WBC 16.0, likely 2/2 steroid treatments. * CMP with Cr 1.78. Labs 04/26: * Labs pending. Imaging: * CT Head 04/24: Degenerative spondylosis of the lower lumbar spine most prominently at L4-5 and L5-S1 with resultant mild central canal narrowing at both levels. Moderate right neural foraminal narrowing at L5-S1 secondary to disc osteophytes. * MRI Brain 04/25: Moderate left neural foraminal disc protrusion/extrusion at the L4-L5 level abutting the left L4 nerve root. Minimal central disc protrusions at the L4-L5 and L5-S1 levels. Narrowing of the neural foramina at the L5-S1 level secondary to loss of disc space height and facet hypertrophy. Consults: * Neurosurgery. * 04/25: Discussed the treatment options including continued conservative management with physical therapy and pain management as well as surgical intervention. He prefers continued conservative management and will have him undergo lumbar epidural steroid injection per special procedures. Encouraged to increase activity and ambulation with physical therapy involvement. * 04/26: Patient states the MIAH helped yesterday but today his pain is back to the same severity that it was when he came to the ER. He states he cannot function with his pain being this high and states he was unable to ambulate at all today with his pain. He wants to continue for now with time but states if his pain does not improve today or tomorrow morning he would want to proceed with surgical intervention. He states he cannot function including walking with his pain being this bad. He states he discussed treatment options with Dr. Fung and he if he elects to proceed with surgery he is wanting a microdiscectomy/foraminotomy procedure and states he understands he would have DDD at the L5/S1 level with foraminal stenosis that could contribute to his pain but would like to proceed with a more minimally invasive approach and see how he does. We will see how he does today. Orders: * PT: Home with Home Health versus Home with Outpatient PT depending on conservative versus surgical management. May need Home Health if he has surgery. Medications: * Methylprednisolone 20mg PO: 8mg PO with breakfast and dinner, 4mg PO with lunch. * Gabapentin 300mg PO TID. * Tylenol 650mg q6h PRN pain/fever. * Oxycodone 5mg q6h PRN breakthrough pain. (2) Intractable low back pain ICD Codes: M54.5 - Low back pain Status: Acute Plan: Plan as above. (3) Sciatica of left side associated with disorder of lumbosacral spine ICD Codes: M53.87 - Other specified dorsopathies, lumbosacral region Plan: Plan as above. (4) ZAHEER (acute kidney injury) ICD Codes: N17.9 - Acute kidney failure, unspecified Status: Acute Plan: Patient describes taking both ibuprofen and motrin simultaneously ("3 pills at a time") without appreciable pain relief. Cr 1.78. Likely NSAID-induced ZAHEER. There are no other visits to assess whether this is an acute vs chronic issue; however, patient describes recent increased NSAID intake within the last 4-5 days. 04/26: Cr downtrending as of 04/25. Labs pending for 04/26. Medications: * Avoid NSAIDS (1 dose Toradol given in ED). * Renally dose medications. * MIVF with NS @ 125mls/hr. (5) FEN/GI/PPx Plan: Fluids: * NS at 125 ml/hr. Electrolytes: * Monitor and replete as necessary. Nutrition: * Regular diet. * NPO after midnight in anticipation of possible procedure tomorrow. DVT Prophylaxis: * SCDs. * Heparin 5,000 units SQ q8hr. (Jadyn Gutierrez MD R1) Problem List: (1) Spondylosis of lumbar spine ICD Codes: M47.816 - Spondylosis without myelopathy or radiculopathy, lumbar region Plan: CT showing degenerative spondylosis with mild central canal narrowing L4- 5, L5-S1. Patient states he's had low back pain >20 years now and this is the worst exacerbation he's ever had. Pain is 5/10 while supine and 10/10 when standing or ambulating. Pain is located in back and shooting down left leg. Patient had epidural injection on 04/25. 04/26: Pain improved while laying supine but pain worsens when sitting and patient in agony when walking. On admission: * CBC with WBC 16.0, likely 2/2 steroid treatments. * CMP with Cr 1.78. Labs 04/26: * Labs pending. Imaging: * CT Head 04/24: Degenerative spondylosis of the lower lumbar spine most prominently at L4-5 and L5-S1 with resultant mild central canal narrowing at both levels. Moderate right neural foraminal narrowing at L5-S1 secondary to disc osteophytes. * MRI Brain 04/25: Moderate left neural foraminal disc protrusion/extrusion at the L4-L5 level abutting the left L4 nerve root. Minimal central disc protrusions at the L4-L5 and L5-S1 levels. Narrowing of the neural foramina at the L5-S1 level secondary to loss of disc space height and facet hypertrophy. Consults: * Neurosurgery. * 04/25: Discussed the treatment options including continued conservative management with physical therapy and pain management as well as surgical intervention. He prefers continued conservative management and will have him undergo lumbar epidural steroid injection per special procedures. Encouraged to increase activity and ambulation with physical therapy involvement. * 04/26: Patient states the MIAH helped yesterday but today his pain is back to the same severity that it was when he came to the ER. He states he cannot function with his pain being this high and states he was unable to ambulate at all today with his pain. He wants to continue for now with time but states if his pain does not improve today or tomorrow morning he would want to proceed with surgical intervention. He states he cannot function including walking with his pain being this bad. He states he discussed treatment options with Dr. Fung and he if he elects to proceed with surgery he is wanting a microdiscectomy/foraminotomy procedure and states he understands he would have DDD at the L5/S1 level with foraminal stenosis that could contribute to his pain but would like to proceed with a more minimally invasive approach and see how he does. We will see how he does today. Orders: * PT: Home with Home Health versus Home with Outpatient PT depending on conservative versus surgical management. May need Home Health if he has surgery. Medications: * Methylprednisolone 20mg PO: 8mg PO with breakfast and dinner, 4mg PO with lunch. * Gabapentin 300mg PO TID. * Tylenol 650mg q6h PRN pain/fever. * Oxycodone 5mg q6h PRN breakthrough pain. (2) Intractable low back pain ICD Codes: M54.5 - Low back pain Status: Acute Plan: Plan as above. (3) Sciatica of left side associated with disorder of lumbosacral spine ICD Codes: M53.87 - Other specified dorsopathies, lumbosacral region Plan: Plan as above. (4) ZAHEER (acute kidney injury) ICD Codes: N17.9 - Acute kidney failure, unspecified Status: Acute Plan: Patient describes taking both ibuprofen and motrin simultaneously ("3 pills at a time") without appreciable pain relief. Cr 1.78. Likely NSAID-induced ZAHEER. There are no other visits to assess whether this is an acute vs chronic issue; however, patient describes recent increased NSAID intake within the last 4-5 days. 04/26: Cr downtrending as of 04/25. Labs pending for 04/26. Medications: * Avoid NSAIDS (1 dose Toradol given in ED). * Renally dose medications. * MIVF with NS @ 125mls/hr. (5) FEN/GI/PPx Plan: Fluids: * NS at 125 ml/hr. Electrolytes: * Monitor and replete as necessary. Nutrition: * Regular diet. * NPO after midnight in anticipation of possible procedure tomorrow. DVT Prophylaxis: * SCDs. * Heparin 5,000 units SQ q8hr. See the residents documentation for details. I saw and evaluated the patient regarding the danielson portions of this evaluation and agree with the residents findings and plans as written. Parts of this note were created using [employer] voice recognition software program. While efforts were made to correct any mistakes made by this software, some mistakes, errors, and omissions may remain in the final note that were not caught when the note was originally created. Plan of care was discussed and agreed upon with the patient as specifically documented in the above note. An opportunity to ask questions with explanation was provided. Patient voiced understanding on all information reviewed and discussed. (Jordan Flores MD) Jadyn Gutierrez MD R1 Apr 26, 2018 13:47 Jordan Flores MD Apr 27, 2018 14:55
[2018-04-26 13:49] LABS: HEMATOCRIT 47.5 % (39.0-51.0); HEMOGLOBIN 15.6 GM/DL (13.0-17.0); MEAN CELL VOLUME 85.2 FL (80.0-100.0); MEAN CORPUSCULAR HEMOGLOBIN 28.1 PG (27.0-34.0); MEAN PLATELET VOLUME 8.9 FL (7.0-11.0); PLATELET COUNT 261 TH/MM3 (150-450); RED BLOOD COUNT 5.57 MIL/MM3 (4.50-5.90); WHITE BLOOD COUNT 16.4 TH/MM3 (4.0-11.0)
[2018-04-26 14:24] LABS: BICARBONATE 20.1 MEQ/L (21.0-32.0); CALCIUM 8.8 MG/DL (8.5-10.1); CREATININE 1.22 MG/DL (0.60-1.30)
[2018-04-26 15:24] VITALS: BP 128/77; PULSE 55; RESP 18; TEMP 97.5; O2SAT 96
[2018-04-26 19:52] VITALS: BP 120/56; PULSE 62; RESP 18; TEMP 97.5; O2SAT 97
[2018-04-26] MEDS ORDERED: methylPREDNISolone 4 MG TAB PO SCH (21:00)
[2018-04-27 03:14] VITALS: BP 144/75; PULSE 64; RESP 18; TEMP 97.5; O2SAT 95
[2018-04-27] MEDS: SODIUM CHLOR 0.9% 1000 ML INJ 1,000 ML IV SCH ×3 (04:54→21:41)
[2018-04-27 06:26] LABS: HEMATOCRIT 48.2 % (39.0-51.0); HEMOGLOBIN 16.2 GM/DL (13.0-17.0); MEAN CELL VOLUME 85.4 FL (80.0-100.0); MEAN CORPUSCULAR HEMOGLOBIN 28.7 PG (27.0-34.0); MEAN CORPUSCULAR HGB CONC 33.6 % (32.0-36.0); MEAN PLATELET VOLUME 8.3 FL (7.0-11.0); PLATELET COUNT 251 TH/MM3 (150-450); RED BLOOD COUNT 5.64 MIL/MM3 (4.50-5.90); WHITE BLOOD COUNT 12.1 TH/MM3 (4.0-11.0)
[2018-04-27] MEDS ORDERED: VANCOMYCIN HCL 1000 MG VIAL ONE ×2 (06:50→08:46)
[2018-04-27] MEDS ORDERED: THROMBIN (TOPICAL) 5,000 UNIT VIAL ONE (06:51)
[2018-04-27] MEDS ORDERED: GELFOAM SIZE 100 ONE (06:51)
[2018-04-27] MEDS ORDERED: BUPIVACAINE/EPINEPHRINE 0.5% PF 30 ML VIAL ONE (06:51)
[2018-04-27] MEDS ORDERED: methylPREDNISolone ACETATE 40 MG/ML VIAL ONE (06:51)
[2018-04-27 07:14] LABS: BICARBONATE 22.5 MEQ/L (21.0-32.0); CALCIUM 8.8 MG/DL (8.5-10.1); CREATININE 1.32 MG/DL (0.60-1.30)
[2018-04-27 07:37] VITALS: BP 141/92; PULSE 61; RESP 18; TEMP 97.6; O2SAT 98
[2018-04-27] MEDS ORDERED: SODIUM CHLOR 0.9% 250 ML INJ 250 ML ONE (08:46)
[2018-04-27] MEDS: FAMOTIDINE 20 MG TAB PO SCH ×2 (09:00→21:39)
[2018-04-27] MEDS: GABAPENTIN 300 MG CAP PO SCH ×3 (09:00→16:52)
[2018-04-27] MEDS: DOCUSATE SODIUM 50 MG/SENNA 8.6 MG TAB PO SCH ×2 (09:00→21:39)
[2018-04-27] MEDS ORDERED: ACETAMINOPHEN 1000 MG/100 ML 100 ML IV ONE (10:13)
[2018-04-27] MEDS ORDERED: DO NOT ADM ANY ANTICOAGULANT DRUGS PRN (10:56)
[2018-04-27] MEDS ORDERED: LACTULOSE SYRUP 20 GM/30 ML CUP PO PRN (11:00)
[2018-04-27] MEDS ORDERED: MENTHOL LOZENGE BUCCAL PRN (11:00)
[2018-04-27] MEDS ORDERED: cloNIDine HCL 0.1 MG TAB PO PRN (11:00)
[2018-04-27] MEDS ORDERED: BISACODYL 10 MG SUPP RECTAL PRN (11:00)
[2018-04-27] MEDS ORDERED: SENNOSIDES 8.6 MG TAB PO PRN (11:00)
[2018-04-27] MEDS ORDERED: oxyCODONE/ACETAMINOPHEN 5 MG/325 MG TAB PO PRN (11:00)
[2018-04-27] MEDS ORDERED: MORPHINE SULFATE 4 MG/ML INJ IV PUSH PRN (11:00)
[2018-04-27] MEDS ORDERED: ZOLPIDEM TARTRATE 5 MG TAB PO PRN (11:00)
[2018-04-27] MEDS ORDERED: SODIUM CHLORIDE 0.9% FLUSH 10 ML FLUSH IV FLUSH PRN (11:00)
[2018-04-27] MEDS ORDERED: PROMETHAZINE INJ 25 MG/ML VIAL IM PRN (11:00)
[2018-04-27] MEDS ORDERED: ALUMINUM/MAGNESIUM/SIMETH 30 ML CUP PO PRN (11:00)
[2018-04-27] MEDS ORDERED: MAGNESIUM HYDROXIDE SUSP 30 ML CUP PO PRN (11:00)
--- NOTE | 2018-04-27 11:08 | PD.OP ---
cc: Corona Ulrich MD R1 Operative Report Date of Surgery: Apr 27, 2018 Preoperative Diagnosis: Intractable low back pain with the radiculopathy; lumbar L4-5 far lateral disc herniation with associated foraminal stenosis and nerve root impingement Postoperative Diagnosis: Same Procedure: Lumbar L4-5 far lateral microdiscectomy with foraminotomy; microsurgical technique Anesthesia: General endotracheal by Patt power Surgeon: Pavan Fung MD Model [employer] Maker Plaster(s): Kellen [place] Operation and Findings: Following administration of general endotracheal anesthesia patient has sequential compression devices place along with a gram of vancomycin administered intravenously. He was turned on a prone position on the Blue frame and Corona table and all pressure points adequately padded. The lumbosacral region was then shaved and prepped with ChloraPrep and sterilely draped with Ioban along with the usual sterile draping. Left paraspinal skin incision overlying the L4-L5 level was then made after infiltrating the skin with 0.5% Marcaine with epinephrine solution. Incision extended down to the fascia which was incised along with the underlying muscle fibers which is split and a retractor placed for exposure of the lateral aspect of the L4-5 facet. Level was confirmed with intraoperative fluoroscopy and further dissection undertaken using microtechnique with microscope magnification. Lateral portion of the facet which was hypertrophied was also resected to open up the foramen visualization. The exiting left L5 nerve root was identified and at the axilla this nerve root extruded disc fragment was evident migrated laterally. 5 one was usually removed using pituitary forceps and nerve hooks until the foramen as well as nerve impingement was completely decompressed. Bipolar cautery was used for hemostasis and the area thoroughly irrigated with antibiotic solution. Depo-Medrol 40 mg also and injected in the foramen. Retractors removed and the fascia approximated using 2-0 Vicryl interrupted stitches and then 3-0 Vicryl subcuticular stitches also placed in an interrupted fashion. Final skin closure was with Mastisol and Steri-Strips. Sterile dressing was then applied. Patient was then turned supine position extubated and taken recovery room in stable condition. There were no intra-complications and all sponge and needle count was correct at the end of the procedure. Estimated blood loss was less than 25 cc. Pavan Fung MD Apr 27, 2018 11:08
[2018-04-27 12:00] VITALS: BP 166/86; PULSE 74; RESP 16; TEMP 97.4; O2SAT 90
[2018-04-27] MEDS ORDERED: LIDOCAINE HCL 1% PF 5 ML SYRINGE OTHER ONE (12:00)
[2018-04-27] MEDS ORDERED: LACTATED RINGER'S 1000 ML INJ 2,000 ML IV ONE (12:00)
[2018-04-27] MEDS ORDERED: ONDANSETRON HCL 4 MG/2 ML VIAL IV ONE (12:00)
[2018-04-27] MEDS ORDERED: DEXAMETHASONE SOD PHOS 4 MG/ML VIAL IV ONE (12:00)
[2018-04-27] MEDS ORDERED: GLYCOPYRROLATE 1 MG/5 ML SYRINGE IV PUSH ONE (12:00)
[2018-04-27] MEDS ORDERED: ROCURONIUM INJ 50 MG/5 ML SYRINGE IV PUSH ONE (12:00)
[2018-04-27] MEDS ORDERED: PROPOFOL 200 MG/20 ML AMP IV ONE (12:00)
[2018-04-27] MEDS ORDERED: NEOSTIGMINE 5 MG/5 ML SYRINGE IV PUSH ONE (12:00)
[2018-04-27] MEDS ORDERED: ePHEDrine/NS 25 MG/5 ML SYRINGE IV ONE (12:00)
--- NOTE | 2018-04-27 12:19 | RADRPT ---
EXAM DATE: 04/27/2018 12:13 PM EDT AGE/SEX: 57 years / Male INDICATIONS: L4-5 Laminectomy. CLINICAL DATA: This is the patient's subsequent encounter. Patient reports that signs and symptoms h ave been present for 3 days and indicates a pain score of Nonresponsive. MEDICAL/SURGICAL HISTORY: Hypercholesterolemia. Appendectomy. COMPARISON: No prior exams available for comparison. FINDINGS: Single crosstable lateral view of the lumbar spine demonstrates a radiopaque marker projecting at the L4-5 neural foraminal level. Vertebral body heights are intact. There is disc space narrowing at L5- S1. CONCLUSION: 1. Radiopaque marker at the L4-5 level, as above. Electronically signed by: Tim Maki MD 04/27/2018 12:18 PM EDT
--- NOTE | 2018-04-27 12:30 | EKG ---
Date Performed: 04/27/2018 Time Performed: 07:35:03 PTAGE: 57 years EKG: SINUS BRADYCARDIA WITH FIRST DEGREE AV BLOCK LOW QRS VOLTAGE IN PRECORDIAL LEADS PATTERN CO NSISTENT WITH PULMONARY DISEASE INFERIOR MYOCARDIAL INFARCTION ABNORMAL ECG NO PREVIOUS TRACING DOCTOR: Lawrence Eid Interpretating Date/Time 04/27/2018 12:26:34
[2018-04-27] MEDS: oxyCODONE/ACETAMINOPHEN 5 MG/325 MG TAB PO PRN (12:48)
[2018-04-27] MEDS ORDERED: PROPOFOL 200 MG/20 ML AMP ONE (13:56)
[2018-04-27 14:00] VITALS: BP 146/92; PULSE 75; RESP 18; TEMP 98.2; O2SAT 95
--- NOTE | 2018-04-27 14:15 | HHI.FPPN ---
Subjective Remarks Patient was seen and evaluated this afternoon. He feels well after surgery. Patient denies chest pain, heart palpitations, shortness of breath, nausea/ vomiting, diarrhea and constipation. All questions were answered. (Jadyn Gutierrez MD R1) Objective Vitals Vital Signs Date Time Temp Pulse Resp B/P (MAP) Pulse Ox O2 Delivery O2 Flow Rate FiO2 04/27/18 10:58 97.6 86 20 161/91 (114) 57 Nasal Cannula 2 04/27/18 07:37 97.6 61 18 141/92 (108) 98 04/27/18 06:00 21 04/27/18 03:14 97.5 64 18 144/75 (98) 95 04/26/18 21:15 14 04/26/18 19:52 97.5 62 18 120/56 (77) 97 04/26/18 15:24 97.5 55 18 128/77 (94) 96 I/O 04/26/18 04/26/18 04/26/18 04/27/18 04/27/18 04/27/18 07:00 15:00 23:00 07:00 15:00 23:00 Intake Total 1600 ml Output Total 950 ml 725 ml Balance -950 ml 875 ml IV Total 1600 ml Output Urine Total 950 ml 700 ml Estimated Blood Loss 25 ml # Voids 1 (Jadyn Gutierrez MD R1) Result Diagram: 04/27/18 0608 04/27/18 0608 Imaging Last Impressions Lumbar Spine X-Ray 04/27/18 0000 Signed Impressions: CONCLUSION: 1. Radiopaque marker at the L4-5 level, as above. Orbit X-Ray 04/25/18 0000 Signed Impressions: CONCLUSION: No metal is seen over the orbits. The patient is cleared for an MRI examination . Lumbar Spine MRI 04/25/18 0000 Signed Impressions: CONCLUSION: 1. Moderate left neural foraminal disc protrusion/extrusion at the L4-L5 level abutting the left L4 nerve root. 2. Minimal central disc protrusions at the L4-L5 and L5-S1 levels. 3. Narrowing of the neural foramina at the L5-S1 level secondary to loss of di sc space height and facet hypertrophy. Epidural Injection 04/25/18 0000 Signed Impressions: CONCLUSION: 1. Uncomplicated fluoroscopically guided epidural injection as above. Lumbar Spine CT 04/24/18 0000 Signed Impressions: CONCLUSION: 1. Degenerative spondylosis of the lower lumbar spine most prominently at L4-5 and L5-S1 with resultant mild central canal narrowing at both levels. 2. Moderate right neural foraminal narrowing at L5-S1 secondary to disc osteop hytes. Objective Remarks GENERAL: This is a well-nourished, well-developed, overweight male lying in bed in no apparent distress. SKIN: No rashes, ecchymoses or lesions. Cool and dry. HEAD: Atraumatic. Normocephalic. EYES: Pupils equal round. Extraocular motions intact. No scleral icterus. No injection or drainage. ENT: Nose without drainage. Airway patent. NECK: Trachea midline. No JVD or lymphadenopathy. Supple, nontender, no meningeal signs. CARDIOVASCULAR: Regular rate and rhythm without murmurs, gallops, or rubs. RESPIRATORY: Clear to auscultation. Breath sounds equal bilaterally. No wheezes , rales, or rhonchi. GASTROINTESTINAL: Abdomen soft, non-tender, nondistended. No hepato-splenomegaly , or palpable masses. No guarding. MUSCULOSKELETAL: Extremities without clubbing, cyanosis, or edema. No joint tenderness, effusion, or edema noted. No calf tenderness. NEUROLOGICAL: Awake and alert. Cranial nerves II through XII intact. Motor and sensory grossly within normal limits. Five out of 5 muscle strength in all muscle groups. Normal speech. Medications and IVs Current Medications Medications (Trade) Dose Ordered Sig/M[place] Route Start Time Stop Time Status Last Admin (Tylenol) 650 mg Q4H PRN PO 04/24/18 21:15 04/25/18 08:47 (Zofran Odt) 4 mg Q6H PRN PO 04/24/18 21:30 (Narcan Inj) 0.4 mg UNSCH PRN IV PUSH 04/24/18 21:15 (Sheryl-Colace) 1 tab BID PO 04/25/18 09:00 04/26/18 20:13 (Pepcid) 10 mg BID PO 04/25/18 09:00 04/26/18 20:13 Sodium Chloride 1,000 ml @ 125 mls/hr Q8H IV 04/25/18 00:00 04/27/18 04:54 (Neurontin) 300 mg TID PO 04/26/18 13:00 04/27/18 13:00 (Flexeril) 5 mg Q8H PRN PO 04/26/18 09:15 04/26/18 14:32 (Pill Splitter) 1 ea UNSCH PRN OTHER 04/26/18 09:30 (NS Flush) 2 ml UNSCH PRN IV FLUSH 04/27/18 11:00 (NS Flush) 2 ml BID IV FLUSH 04/27/18 21:00 Cefazolin Sodium 1000 mg/Sodium Chloride 100 ml @ 200 mls/hr Q8H IV 04/27/18 12:00 04/28/18 04:29 04/27/18 11:54 (Mag-Al Plus Susp Liq) 30 ml Q6H PRN PO 04/27/18 11:00 (Phenergan Inj) 25 mg Q4H PRN IM 04/27/18 11:00 (Percocet 5-325 Mg) 1 tab Q4H PRN PO 04/27/18 11:00 04/27/18 12:48 (Percocet 5-325 Mg) 2 tab Q4H PRN PO 04/27/18 11:00 (Morphine Inj) 2 mg Q2H PRN IV PUSH 04/27/18 11:00 (Catapres) 0.1 mg Q6H PRN PO 04/27/18 11:00 ([place] [facility]) 1 lozenge UNSCH PRN BUCCAL 04/27/18 11:00 (Ambien) 5 mg HS PRN PO 04/27/18 11:00 (Milk Of Magnesia Liq) 30 ml Q12H PRN PO 04/27/18 11:00 (Senokot) 17.2 mg Q12H PRN PO 04/27/18 11:00 (Dulcolax Supp) 10 mg DAILY PRN RECTAL 04/27/18 11:00 (Lactulose Liq) 30 ml DAILY PRN PO 04/27/18 11:00 ([facility] [place] [facility]) ALL NURSING DEPARTME... UNSCH PRN .XX 04/27/18 10:56 04/28/18 10:55 (Jadyn Gutierrez MD R1) Urinary Catheter: No (Jadyn Gutierrez MD R1) Vascular Central Line Catheter: No (Jadyn Gutierrez MD R1) A/P Assessment and Plan Patient is a 57 year old male with chronic low back pain >20 years and possible HTN with acute exacerbation of low back pain and CT showing degenerative spondylosis with mild central canal narrowing at L4-5 and L5-S1 as well as moderate right neural foramen narrowing 2/2 osteophytes. There is no saddle anesthesia or overt incontinence. Patient admitted for observation due to inability to ambulate earlier today. Neurosurgery, Dr Fung, has been consulted. Discharge Planning Clinical improvement. (Jadyn Gutierrez MD R1) Problem List: (1) Spondylosis of lumbar spine ICD Codes: M47.816 - Spondylosis without myelopathy or radiculopathy, lumbar region Plan: CT showing degenerative spondylosis with mild central canal narrowing L4- 5, L5-S1. Patient states he's had low back pain >20 years now and this is the worst exacerbation he's ever had. Pain is 5/10 while supine and 10/10 when standing or ambulating. Pain is located in back and shooting down left leg. Patient had epidural injection on 04/25. Patient underwent lumbar L4-5 far lateral microdiscectomy with foraminotomy; microsurgical technique on 04/27. 04/27: Pain controlled when laying supine. Per patient, surgery went well. On admission: * CBC with WBC 16.0, likely 2/2 steroid treatments. * CMP with Cr 1.78. Labs 04/27: * CBC with WBC 12.1. * CMP with Cr 1.32. Imaging: * CT Head 04/24: Degenerative spondylosis of the lower lumbar spine most prominently at L4-5 and L5-S1 with resultant mild central canal narrowing at both levels. Moderate right neural foraminal narrowing at L5-S1 secondary to disc osteophytes. * MRI Brain 04/25: Moderate left neural foraminal disc protrusion/extrusion at the L4-L5 level abutting the left L4 nerve root. Minimal central disc protrusions at the L4-L5 and L5-S1 levels. Narrowing of the neural foramina at the L5-S1 level secondary to loss of disc space height and facet hypertrophy. Consults: * Neurosurgery. * 04/25: Discussed the treatment options including continued conservative management with physical therapy and pain management as well as surgical intervention. He prefers continued conservative management and will have him undergo lumbar epidural steroid injection per special procedures. Encouraged to increase activity and ambulation with physical therapy involvement. * 04/26: Patient states the MIA[facility] helped yesterday but today his pain is back to the same severity that it was when he came to the ER. He states he cannot function with his pain being this high and states he was unable to ambulate at all today with his pain. He wants to continue for now with time but states if his pain does not improve today or tomorrow morning he would want to proceed with surgical intervention. He states he cannot function including walking with his pain being this bad. He states he discussed treatment options with Dr. Fung and he if he elects to proceed with surgery he is wanting a microdiscectomy/foraminotomy procedure and states he understands he would have DDD at the L5/S1 level with foraminal stenosis that could contribute to his pain but would like to proceed with a more minimally invasive approach and see how he does. We will see how he does today. * 04/27: Patient underwent lumbar L4-5 far lateral microdiscectomy with foraminotomy; microsurgical technique today. No intra-operative complications. Orders: * PT: Home with Home Health versus Home with Outpatient PT depending on conservative versus surgical management. May need Home Health if he has surgery. Medications: * Methylprednisolone 16mg PO: 16mg PO with dinner. * Gabapentin 300mg PO TID. * Tylenol 650mg q6h PRN pain/fever. * Oxycodone 5mg q6h PRN breakthrough pain. (2) Intractable low back pain ICD Codes: M54.5 - Low back pain Status: Acute Plan: Plan as above. (3) Sciatica of left side associated with disorder of lumbosacral spine ICD Codes: M53.87 - Other specified dorsopathies, lumbosacral region Plan: Plan as above. (4) ZAHEER (acute kidney injury) ICD Codes: N17.9 - Acute kidney failure, unspecified Status: Acute Plan: Patient describes taking both ibuprofen and motrin simultaneously ("3 pills at a time") without appreciable pain relief. Cr 1.78. Likely NSAID-induced ZAHEER. There are no other visits to assess whether this is an acute vs chronic issue; however, patient describes recent increased NSAID intake within the last 4-5 days. 04/26: Cr downtrending as of 04/25. Medications: * Avoid NSAIDS (1 dose Toradol given in ED). * Renally dose medications. * MIVF with NS @ 125mls/hr. (5) FEN/GI/PPx Plan: Fluids: * NS at 125 ml/hr. Electrolytes: * Monitor and replete as necessary. Nutrition: * Clear liquid diet. DVT Prophylaxis: * SCDs. * Heparin held for surgery. (Jadyn Gutierrez MD R1) Problem List: (1) Spondylosis of lumbar spine ICD Codes: M47.816 - Spondylosis without myelopathy or radiculopathy, lumbar region Plan: CT showing degenerative spondylosis with mild central canal narrowing L4- 5, L5-S1. Patient states he's had low back pain >20 years now and this is the worst exacerbation he's ever had. Pain is 5/10 while supine and 10/10 when standing or ambulating. Pain is located in back and shooting down left leg. Patient had epidural injection on 04/25. Patient underwent lumbar L4-5 far lateral microdiscectomy with foraminotomy; microsurgical technique on 04/27. 04/27: Pain controlled when laying supine. Per patient, surgery went well. On admission: * CBC with WBC 16.0, likely 2/2 steroid treatments. * CMP with Cr 1.78. Labs 04/27: * CBC with WBC 12.1. * CMP with Cr 1.32. Imaging: * CT Head 04/24: Degenerative spondylosis of the lower lumbar spine most prominently at L4-5 and L5-S1 with resultant mild central canal narrowing at both levels. Moderate right neural foraminal narrowing at L5-S1 secondary to disc osteophytes. * MRI Brain 04/25: Moderate left neural foraminal disc protrusion/extrusion at the L4-L5 level abutting the left L4 nerve root. Minimal central disc protrusions at the L4-L5 and L5-S1 levels. Narrowing of the neural foramina at the L5-S1 level secondary to loss of disc space height and facet hypertrophy. Consults: * Neurosurgery. * 04/25: Discussed the treatment options including continued conservative management with physical therapy and pain management as well as surgical intervention. He prefers continued conservative management and will have him undergo lumbar epidural steroid injection per special procedures. Encouraged to increase activity and ambulation with physical therapy involvement. * 04/26: Patient states the MIA[facility] helped yesterday but today his pain is back to the same severity that it was when he came to the ER. He states he cannot function with his pain being this high and states he was unable to ambulate at all today with his pain. He wants to continue for now with time but states if his pain does not improve today or tomorrow morning he would want to proceed with surgical intervention. He states he cannot function including walking with his pain being this bad. He states he discussed treatment options with Dr. Fung and he if he elects to proceed with surgery he is wanting a microdiscectomy/foraminotomy procedure and states he understands he would have DDD at the L5/S1 level with foraminal stenosis that could contribute to his pain but would like to proceed with a more minimally invasive approach and see how he does. We will see how he does today. * 04/27: Patient underwent lumbar L4-5 far lateral microdiscectomy with foraminotomy; microsurgical technique today. No intra-operative complications. Orders: * PT: Home with Home Health versus Home with Outpatient PT depending on conservative versus surgical management. May need Home Health if he has surgery. Medications: * Methylprednisolone 16mg PO: 16mg PO with dinner. * Gabapentin 300mg PO TID. * Tylenol 650mg q6h PRN pain/fever. * Oxycodone 5mg q6h PRN breakthrough pain. (2) Intractable low back pain ICD Codes: M54.5 - Low back pain Status: Acute Plan: Plan as above. (3) Sciatica of left side associated with disorder of lumbosacral spine ICD Codes: M53.87 - Other specified dorsopathies, lumbosacral region Plan: Plan as above. (4) ZAHEER (acute kidney injury) ICD Codes: N17.9 - Acute kidney failure, unspecified Status: Acute Plan: Patient describes taking both ibuprofen and motrin simultaneously ("3 pills at a time") without appreciable pain relief. Cr 1.78. Likely NSAID-induced ZAHEER. There are no other visits to assess whether this is an acute vs chronic issue; however, patient describes recent increased NSAID intake within the last 4-5 days. 04/26: Cr downtrending as of 04/25. Medications: * Avoid NSAIDS (1 dose Toradol given in ED). * Renally dose medications. * MIVF with NS @ 125mls/hr. (5) FEN/GI/PPx Plan: Fluids: * NS at 125 ml/hr. Electrolytes: * Monitor and replete as necessary. Nutrition: * Clear liquid diet. DVT Prophylaxis: * SCDs. * Heparin held for surgery. See the residents documentation for details. I saw and evaluated the patient regarding the danielson portions of this evaluation and agree with the residents findings and plans as written. Parts of this note were created using [employer] voice recognition software program. While efforts were made to correct any mistakes made by this software, some mistakes, errors, and omissions may remain in the final note that were not caught when the note was originally created. Plan of care was discussed and agreed upon with the patient as specifically documented in the above note. An opportunity to ask questions with explanation was provided. Patient voiced understanding on all information reviewed and discussed. (Jordan Flores MD) Jadyn Gutierrez MD R1 Apr 27, 2018 14:15 Jordan Flores MD Apr 27, 2018 15:00
[2018-04-27 20:00] VITALS: BP 139/89; PULSE 79; RESP 20; TEMP 98.6; O2SAT 98
[2018-04-27] MEDS: SODIUM CHLORIDE 0.9% FLUSH 10 ML FLUSH IV FLUSH SCH (21:39)
[2018-04-28] VITALS: BP 134/83; PULSE 72; RESP 20; TEMP 97.4; O2SAT 98
[2018-04-28] MEDS: oxyCODONE/ACETAMINOPHEN 5 MG/325 MG TAB PO PRN ×3 (03:35→15:29)
[2018-04-28 04:00] VITALS: BP 153/87; PULSE 62; RESP 20; TEMP 98; O2SAT 98
[2018-04-28 06:25] LABS: HEMATOCRIT 45.7 % (39.0-51.0); HEMOGLOBIN 15.5 GM/DL (13.0-17.0); MEAN CELL VOLUME 85.1 FL (80.0-100.0); MEAN CORPUSCULAR HEMOGLOBIN 28.8 PG (27.0-34.0); MEAN CORPUSCULAR HGB CONC 33.8 % (32.0-36.0); MEAN PLATELET VOLUME 8.3 FL (7.0-11.0); PLATELET COUNT 274 TH/MM3 (150-450); RED BLOOD COUNT 5.37 MIL/MM3 (4.50-5.90); RED CELL DISTRIBUTION WIDTH 13.9 % (11.6-17.2)
[2018-04-28 06:54] LABS: BICARBONATE 23.6 MEQ/L (21.0-32.0); CALCIUM 8.7 MG/DL (8.5-10.1); CREATININE 1.28 MG/DL (0.60-1.30)
[2018-04-28 08:00] VITALS: BP 176/86; PULSE 70; RESP 16; TEMP 97.8; O2SAT 97
[2018-04-28] MEDS: SODIUM CHLOR 0.9% 1000 ML INJ 1,000 ML IV SCH ×2 (08:00→10:30)
[2018-04-28] MEDS ORDERED: methylPREDNISolone 4 MG TAB PO SCH (08:00)
[2018-04-28] MEDS: FAMOTIDINE 20 MG TAB PO SCH (08:31)
[2018-04-28] MEDS: DOCUSATE SODIUM 50 MG/SENNA 8.6 MG TAB PO SCH (08:31)
[2018-04-28] MEDS: GABAPENTIN 300 MG CAP PO SCH ×3 (08:31→16:24)
[2018-04-28] MEDS: SODIUM CHLORIDE 0.9% FLUSH 10 ML FLUSH IV FLUSH SCH (08:33)
--- NOTE | 2018-04-28 09:49 | HHI.FPPN ---
Subjective Remarks Patient seen and examined this morning. No acute events overnight per nursing staff. Patient states that he feels "100 times better than from his admission. " He states that he is having residual sciatica down his left buttock, however the pain is tolerable compared to what it was at admission. Patient states that he has been able to ambulate with physical therapy with no complications thus far. His only complaint today is constipation without pain as he has not had a bowel movement since admission. Otherwise he has no complaints and denies any fevers, chills, shortness of breath, chest pain, NVD, abdominal pain , incontinence, urinary retention, or calf tenderness. (Alexandro Jacobson MD R2) Objective Vitals Vital Signs Date Time Temp Pulse Resp B/P (MAP) Pulse Ox O2 Delivery O2 Flow Rate FiO2 04/28/18 04:00 98.0 62 20 153/87 (109) 98 04/28/18 00:00 97.4 72 20 134/83 (100) 98 04/27/18 20:00 98.6 79 20 139/89 (106) 98 04/27/18 14:00 98.2 75 18 146/92 (110) 95 04/27/18 12:25 98.1 62 20 142/87 (105) 95 Room Air 04/27/18 12:15 62 20 142/87 (105) 95 Room Air 04/27/18 12:00 97.4 74 16 166/86 (112) 90 04/27/18 12:00 66 20 137/80 (99) 93 Room Air 04/27/18 11:45 61 20 140/84 (102) 93 Room Air 04/27/18 11:30 66 20 140/86 (104) 92 Room Air 04/27/18 11:15 61 20 136/84 (101) 92 04/27/18 10:58 97.6 86 20 161/91 (114) 57 Nasal Cannula 2 I/O 04/27/18 04/27/18 04/27/18 04/28/18 04/28/18 04/28/18 07:00 15:00 23:00 07:00 15:00 23:00 Intake Total 1600 ml 720 ml Output Total 950 ml 725 ml 2000 ml Balance -950 ml 875 ml -1280 ml Intake Oral 720 ml IV Total 1600 ml Output Urine Total 950 ml 700 ml 2000 ml Estimated Blood Loss 25 ml # Voids 1 (Alexandro Jacobson MD R2) Result Diagram: 04/28/18 0604/28/18 06 Objective Remarks GENERAL: Well-nourished, well-developed male lying in bed watching television in no acute distress. SKIN: No rashes, ecchymoses or lesions. Cool and dry. HEENT: Atraumatic, normocephalic with EOMI. No rhinorrhea. No visible LAD or JVD appreciated. CARDIOVASCULAR: Regular rate and rhythm without murmurs, gallops, or rubs. 2+ pulses in all 4 extremities. RESPIRATORY: Clear to auscultation bilaterally with no CRW. No increased work of breathing. GASTROINTESTINAL: Abdomen soft, non-tender, nondistended with positive bowel sounds. No masses appreciated. MUSCULOSKELETAL: Extremities without cyanosis or edema. No calf tenderness. Small sterile bandage covering procedure: Wounds on the left lower back without surrounding erythema or edema. Nontender to palpation. NEUROLOGICAL: Afocal. AAO 3. Normal speech and judgment. Lower extremity strength 5/5 without loss of sensation. Patient ambulating well per report. (Alexandro Jacobson MD R2) A/P Assessment and Plan Patient is a 57 year old male with chronic low back pain >20 years and possible HTN with acute exacerbation of low back pain and CT showing degenerative spondylosis with mild central canal narrowing at L4-5 and L5-S1 as well as moderate right neural foramen narrowing 2/2 osteophytes. There is no saddle anesthesia or overt incontinence. Patient admitted for observation due to inability to ambulate earlier today. Neurosurgery, Dr Fung, has been consulted. Discharge Planning Pending neurosurgery clearance and resolution of constipation Patient to be discharged to short term rehab Case management consulted to assist with discharge planning (Alexandro Jacobson MD R2) Problem List: (1) Spondylosis of lumbar spine ICD Codes: M47.816 - Spondylosis without myelopathy or radiculopathy, lumbar region Plan: CT showing degenerative spondylosis with mild central canal narrowing L4- 5, L5-S1. Patient states he's had low back pain >20 years now and this is the worst exacerbation he's ever had. Pain is 5/10 while supine and 10/10 when standing or ambulating. Pain is located in back and shooting down left leg. Patient had epidural injection on 04/25. Patient underwent lumbar L4-5 far lateral microdiscectomy with foraminotomy; microsurgical technique on 04/27. 04/27: Pain controlled when laying supine. Per patient, surgery went well. On admission: * CBC with WBC 16.0, likely 2/2 steroid treatments. * CMP with Cr 1.78. Labs: * H/H stable Imaging: * CT Head 04/24: Degenerative spondylosis of the lower lumbar spine most prominently at L4-5 and L5-S1 with resultant mild central canal narrowing at both levels. Moderate right neural foraminal narrowing at L5-S1 secondary to disc osteophytes. * MRI Brain 04/25: Moderate left neural foraminal disc protrusion/extrusion at the L4-L5 level abutting the left L4 nerve root. Minimal central disc protrusions at the L4-L5 and L5-S1 levels. Narrowing of the neural foramina at the L5-S1 level secondary to loss of disc space height and facet hypertrophy. Consults: * Neurosurgery. * 04/25: Discussed the treatment options including continued conservative management with physical therapy and pain management as well as surgical intervention. He prefers continued conservative management and will have him undergo lumbar epidural steroid injection per special procedures. Encouraged to increase activity and ambulation with physical therapy involvement. * 04/26: Patient states the MIAH helped yesterday but today his pain is back to the same severity that it was when he came to the ER. He states he cannot function with his pain being this high and states he was unable to ambulate at all today with his pain. He wants to continue for now with time but states if his pain does not improve today or tomorrow morning he would want to proceed with surgical intervention. He states he cannot function including walking with his pain being this bad. He states he discussed treatment options with Dr. Fung and he if he elects to proceed with surgery he is wanting a microdiscectomy/foraminotomy procedure and states he understands he would have DDD at the L5/S1 level with foraminal stenosis that could contribute to his pain but would like to proceed with a more minimally invasive approach and see how he does. We will see how he does today. * 04/27: Patient underwent lumbar L4-5 far lateral microdiscectomy with foraminotomy; microsurgical technique today. No intra-operative complications. Orders: * PT: Home with Home Health versus Home with Outpatient PT depending on conservative versus surgical management. May need Home Health if he has surgery. Medications: * Methylprednisolone 16mg PO: 16mg PO with dinner. * Gabapentin 300mg PO TID. * Tylenol 650mg q6h PRN pain/fever. * Oxycodone 5mg q6h PRN pain (2) Intractable low back pain ICD Codes: M54.5 - Low back pain Status: Acute Plan: Plan as above. (3) Constipation ICD Codes: K59.00 - Constipation, unspecified Status: Acute Plan: Patient endorsing constipation since admission to hospital likely secondary to acute narcotic use. Continue to monitor as patient is postop. -Encouraged ambulation as tolerated as patient is post-op. Medications: -Constipation protocol in place -Plan to continue fluids to assist with constipation at this time (4) Sciatica of left side associated with disorder of lumbosacral spine ICD Codes: M53.87 - Other specified dorsopathies, lumbosacral region Plan: Plan as above. (5) ZAHEER (acute kidney injury) ICD Codes: N17.9 - Acute kidney failure, unspecified Status: Acute Plan: Patient describes taking both ibuprofen and motrin simultaneously ("3 pills at a time") without appreciable pain relief. Cr 1.78. Likely NSAID-induced ZAHEER. There are no other visits to assess whether this is an acute vs chronic issue; however, patient describes recent increased NSAID intake within the last 4-5 days. 04/28: Cr normalized Medications: * Avoid NSAIDS (1 dose Toradol given in ED). * Renally dose medications. * MIVF with NS @ 125mls/hr. (6) FEN/GI/PPx Plan: Fluids: * NS at 125 ml/hr. Electrolytes: * Monitor and replete as necessary. Nutrition: * Clear liquid diet. DVT Prophylaxis: * SCDs. * Heparin held for post-op (Alexandro Jacobson MD R2) Problem List: (1) Spondylosis of lumbar spine ICD Codes: M47.816 - Spondylosis without myelopathy or radiculopathy, lumbar region Plan: CT showing degenerative spondylosis with mild central canal narrowing L4- 5, L5-S1. Patient states he's had low back pain >20 years now and this is the worst exacerbation he's ever had. Pain is 5/10 while supine and 10/10 when standing or ambulating. Pain is located in back and shooting down left leg. Patient had epidural injection on 04/25. Patient underwent lumbar L4-5 far lateral microdiscectomy with foraminotomy; microsurgical technique on 04/27. 04/27: Pain controlled when laying supine. Per patient, surgery went well. On admission: * CBC with WBC 16.0, likely 2/2 steroid treatments. * CMP with Cr 1.78. Labs: * H/H stable Imaging: * CT Head 04/24: Degenerative spondylosis of the lower lumbar spine most prominently at L4-5 and L5-S1 with resultant mild central canal narrowing at both levels. Moderate right neural foraminal narrowing at L5-S1 secondary to disc osteophytes. * MRI Brain 04/25: Moderate left neural foraminal disc protrusion/extrusion at the L4-L5 level abutting the left L4 nerve root. Minimal central disc protrusions at the L4-L5 and L5-S1 levels. Narrowing of the neural foramina at the L5-S1 level secondary to loss of disc space height and facet hypertrophy. Consults: * Neurosurgery. * 04/25: Discussed the treatment options including continued conservative management with physical therapy and pain management as well as surgical intervention. He prefers continued conservative management and will have him undergo lumbar epidural steroid injection per special procedures. Encouraged to increase activity and ambulation with physical therapy involvement. * 04/26: Patient states the MIAH helped yesterday but today his pain is back to the same severity that it was when he came to the ER. He states he cannot function with his pain being this high and states he was unable to ambulate at all today with his pain. He wants to continue for now with time but states if his pain does not improve today or tomorrow morning he would want to proceed with surgical intervention. He states he cannot function including walking with his pain being this bad. He states he discussed treatment options with Dr. Fung and he if he elects to proceed with surgery he is wanting a microdiscectomy/foraminotomy procedure and states he understands he would have DDD at the L5/S1 level with foraminal stenosis that could contribute to his pain but would like to proceed with a more minimally invasive approach and see how he does. We will see how he does today. * 04/27: Patient underwent lumbar L4-5 far lateral microdiscectomy with foraminotomy; microsurgical technique today. No intra-operative complications. Orders: * PT: Home with Home Health versus Home with Outpatient PT depending on conservative versus surgical management. May need Home Health if he has surgery. Medications: * Methylprednisolone 16mg PO: 16mg PO with dinner. * Gabapentin 300mg PO TID. * Tylenol 650mg q6h PRN pain/fever. * Oxycodone 5mg q6h PRN pain (2) Intractable low back pain ICD Codes: M54.5 - Low back pain Status: Acute Plan: Plan as above. (3) Constipation ICD Codes: K59.00 - Constipation, unspecified Status: Acute Plan: Patient endorsing constipation since admission to hospital likely secondary to acute narcotic use. Continue to monitor as patient is postop. -Encouraged ambulation as tolerated as patient is post-op. Medications: -Constipation protocol in place -Plan to continue fluids to assist with constipation at this time (4) Sciatica of left side associated with disorder of lumbosacral spine ICD Codes: M53.87 - Other specified dorsopathies, lumbosacral region Plan: Plan as above. (5) ZAHEER (acute kidney injury) ICD Codes: N17.9 - Acute kidney failure, unspecified Status: Acute Plan: Patient describes taking both ibuprofen and motrin simultaneously ("3 pills at a time") without appreciable pain relief. Cr 1.78. Likely NSAID-induced ZAHEER. There are no other visits to assess whether this is an acute vs chronic issue; however, patient describes recent increased NSAID intake within the last 4-5 days. 04/28: Cr normalized Medications: * Avoid NSAIDS (1 dose Toradol given in ED). * Renally dose medications. * MIVF with NS @ 125mls/hr. (6) FEN/GI/PPx Plan: Fluids: * NS at 125 ml/hr. Electrolytes: * Monitor and replete as necessary. Nutrition: * Clear liquid diet. DVT Prophylaxis: * SCDs. * Heparin held for post-op See the residents documentation for details. I saw and evaluated the patient regarding the danielson portions of this evaluation and agree with the residents findings and plans as written. Parts of this note were created using [employer] voice recognition software program. While efforts were made to correct any mistakes made by this software, some mistakes, errors, and omissions may remain in the final note that were not caught when the note was originally created. Plan of care was discussed and agreed upon with the patient as specifically documented in the above note. An opportunity to ask questions with explanation was provided. Patient voiced understanding on all information reviewed and discussed. (Jordan Flores MD) Problem Qualifiers (1) Constipation: Qualified Codes: K59.03 - Drug induced constipation Alexandro Jacobson MD R2 Apr 28, 2018 09:49 Jordan Flores MD Apr 30, 2018 11:19
--- NOTE | 2018-04-28 11:09 | HHI.NSPN ---
(Lindsay Haines) Note Status Status: Progress Note (Lindsay Haines) Interval History Interval History 57 y/o male s/p lumbar L4-5 far lateral microdiscectomy with foraminotomy; microsurgical technique, doing well, reports significant improvement of prior radicular pain now a 2/10. residual paresthesias posterolateral thigh. no change in strength. (Lindsay Haines) Labs, Micro, & Vital Signs Results Date Time Temp Pulse Resp B/P (MAP) Pulse Ox O2 Delivery O2 Flow Rate FiO2 04/28/18 04:00 98.0 62 20 153/87 (109) 98 04/28/18 00:00 97.4 72 20 134/83 (100) 98 04/27/18 20:00 98.6 79 20 139/89 (106) 98 04/27/18 14:00 98.2 75 18 146/92 (110) 95 04/27/18 12:25 98.1 62 20 142/87 (105) 95 Room Air 04/27/18 12:15 62 20 142/87 (105) 95 Room Air 04/27/18 12:00 97.4 74 16 166/86 (112) 90 04/27/18 12:00 66 20 137/80 (99) 93 Room Air 04/27/18 11:45 61 20 140/84 (102) 93 Room Air 04/27/18 11:30 66 20 140/86 (104) 92 Room Air 04/27/18 11:15 61 20 136/84 (101) 92 Constitutional Vital Signs Date Time Temp Pulse Resp B/P (MAP) Pulse Ox O2 Delivery O2 Flow Rate FiO2 04/28/18 04:00 98.0 62 20 153/87 (109) 98 04/28/18 00:00 97.4 72 20 134/83 (100) 98 04/27/18 20:00 98.6 79 20 139/89 (106) 98 04/27/18 14:00 98.2 75 18 146/92 (110) 95 04/27/18 12:25 98.1 62 20 142/87 (105) 95 Room Air 04/27/18 12:15 62 20 142/87 (105) 95 Room Air 04/27/18 12:00 97.4 74 16 166/86 (112) 90 04/27/18 12:00 66 20 137/80 (99) 93 Room Air 04/27/18 11:45 61 20 140/84 (102) 93 Room Air 04/27/18 11:30 66 20 140/86 (104) 92 Room Air 04/27/18 11:15 61 20 136/84 (101) 92 (Lindsay Haines) Review of Systems Constitutional: DENIES: Fever Musculoskeletal: COMPLAINS OF: Muscle aches Neurologic: COMPLAINS OF: Paresthesias (Lindsay Haines) Physical Exam General: comfortable, no distress. Eyes: Pupils equal. Sclera anicteric. Resp: CTA bilaterally. Heart: NSR no murmurs Abd: Soft positive bs Skin: No cyanosis or erythema. Lumbar wound clean and dry with dressing in place. Muscle: Moves LEs with good strength. Neuro: Awake, alert and oriented. Speech fluent. (Lindsay Haines) Medications Current Medications Current Medications Medications (Trade) Dose Ordered Sig/[place] Route PRN Reason Start Time Stop Time Status Last Admin Dose Admin Acetaminophen (Tylenol) 650 mg Q4H PRN PO TEMP > 100.4 04/24/18 21:15 04/25/18 08:47 Ondansetron HCl (Zofran Odt) 4 mg Q6H PRN PO NAUSEA OR VOMITING 04/24/18 21:30 Naloxone HCl (Narcan Inj) 0.4 mg UNSCH PRN IV PUSH SEE LABEL COMMENTS 04/24/18 21:15 Senna/Docusate Sodium (Sheryl-Colace) 1 tab BID PO 04/25/18 09:00 04/28/18 08:31 Famotidine (Pepcid) 10 mg BID PO 04/25/18 09:00 04/28/18 08:31 Sodium Chloride 1,000 ml @ 125 mls/hr Q8H IV 04/25/18 00:00 04/27/18 21:41 Gabapentin (Neurontin) 300 mg TID PO 04/26/18 13:00 04/28/18 08:31 Cyclobenzaprine HCl (Flexeril) 5 mg Q8H PRN PO Muscle spasms 04/26/18 09:15 04/26/18 14:32 Miscellaneous (Pill Splitter) 1 ea UNSCH PRN OTHER SEE LABEL COMMENTS 04/26/18 09:30 Sodium Chloride (NS Flush) 2 ml UNSCH PRN IV FLUSH FLUSH AFTER USING IV ACCESS 04/27/18 11:00 04/28/18 03:33 Sodium Chloride (NS Flush) 2 ml BID IV FLUSH 04/27/18 21:00 04/28/18 08:33 Al Hydrox/Mg Hydrox/Simethicone (Mag-Al Plus Susp Liq) 30 ml Q6H PRN PO DYSPEPSIA 04/27/18 11:00 Promethazine HCl (Phenergan Inj) 25 mg Q4H PRN IM NAUSEA OR VOMITING 04/27/18 11:00 Oxycodone/ Acetaminophen (Percocet 5-325 Mg) 1 tab Q4H PRN PO PAIN SCALE 1 TO 5 04/27/18 11:00 04/28/18 08:32 Oxycodone/ Acetaminophen (Percocet 5-325 Mg) 2 tab Q4H PRN PO PAIN SCALE 6 TO 10 04/27/18 11:00 Clonidine (Catapres) 0.1 mg Q6H PRN PO SYS BP GREATER THAN 170 MMHG 04/27/18 11:00 Menthol (Elko Gaye) 1 lozenge UNSCH PRN BUCCAL SORE THROAT 04/27/18 11:00 04/27/18 15:59 Zolpidem Tartrate (Ambien) 5 mg HS PRN PO INSOMNIA 04/27/18 11:00 Magnesium Hydroxide (Milk Of Magnesia Liq) 30 ml Q12H PRN PO Mild constipation 04/27/18 11:00 04/28/18 08:32 Sennosides (Senokot) 17.2 mg Q12H PRN PO Moderate constipation 04/27/18 11:00 04/28/18 08:31 Bisacodyl (Dulcolax Supp) 10 mg DAILY PRN RECTAL SEVERE CONSITIPATION 04/27/18 11:00 Lactulose (Lactulose Liq) 30 ml DAILY PRN PO SEVERE CONSITIPATION 04/27/18 11:00 04/28/18 08:32 Methylprednisolone (Medrol) 4 mg ONCE ONCE PO 04/28/18 12:00 04/28/18 12:01 (Lindsay Haines) Medical Decision Making MDM Remarks 57 y/o male with intractable low back pain with the radiculopathy; lumbar L4-5 far lateral disc herniation with associated foraminal stenosis and nerve root impingement s/p Lumbar L4-5 far lateral microdiscectomy with foraminotomy; microsurgical technique with Dr. Fung, improved radicular pain (Lindsay Haines) Plan Plan Remarks clear to dc from N[facility] standpoint to rehab cont current care f/u Dr. Fung in 1 week (Lindsay Haines) Attending Statement The exam, history, and the medical decision-making described in the above note were completed with the assistance of the mid-level provider. I reviewed and agree with the findings presented. I attest that I had a [id number] encounter with the patient on the same day, and personally performed and documented my assessment and findings in the medical record. (Yan Oliveira MD) Lindsay Haines Apr 28, 2018 11:09 Yan Oliveira MD Apr 28, 2018 19:35
[2018-04-28] MEDS ORDERED: BISACODYL 10 MG SUPP RECTAL PRN (11:15)
[2018-04-28 11:29] VITALS: BP 149/72; PULSE 80; RESP 18; TEMP 98; O2SAT 95
[2018-04-28] MEDS ORDERED: methylPREDNISolone 4 MG TAB PO ONE (12:00)
[2018-04-28] MEDS ORDERED: OXYC1TAB63 PO (12:39)
[2018-04-28] MEDS ORDERED: NEUR300C PO (12:39)
[2018-04-28] MEDS ORDERED: ACET325T15 PO (12:39)
--- NOTE | 2018-04-28 12:39 | HHI.DCPOC ---
Discharge Care Plan Diagnosis: (1) Sciatica of left side associated with disorder of lumbosacral spine (2) Spondylosis of lumbar spine (3) Intractable low back pain Goals to Promote Your Health * To prevent worsening of your condition and complications * To maintain your health at the optimal level Directions to Meet Your Goals Take your medications as prescribed Follow your dietary instruction Follow activity as directed Keep your appointments as scheduled Take your immunizations and boosters as scheduled If your symptoms worsen call your PCP, if no PCP go to Urgent Care Center or Emergency Room Smoking is Dangerous to Your Health. Avoid second hand smoke Call the 24-hour hour crisis hotline for domestic abuse at Alexandro Jacobson MD R2 Apr 28, 2018 12:39
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
[2018-04-28] MEDS ORDERED: PERI PO (13:19)
[2018-04-28 15:32] VITALS: BP 163/96; PULSE 74; RESP 18; TEMP 97.8; O2SAT 96
== END 2018-04-28 19:02 ==
LOC: NEPC 14:46 → NEDA 20:27 → NEPGCP 21:30 → N06B 04-27 08:36 → N06A 04-27 12:32
PROVIDERS: ADMIT Family Medicine; ATTEND Family Medicine
DX: M51.16 Intervertebral disc disorders with radiculopathy, lumbar region (principal); M48.061 Spinal stenosis, lumbar region without neurogenic claudication; M47.26 Other spondylosis with radiculopathy, lumbar region; G89.29 Other chronic pain; K59.03 Drug induced constipation; N17.9 Acute kidney failure, unspecified; T39.395A Adverse effect of other nonsteroidal anti-inflammatory drugs [NSAID], initial encounter; I10 Essential (primary) hypertension; E66.9 Obesity, unspecified
CPT/HCPCS: 00630; 62323; 63047; 70250; 72020; 72131; 72148; 76000; 80048; 80053; 85025; 85027; 85610; 93005; 94150; 96361; 96365; 96366; 96372; 97162; 97164; 97530; 99285; G0378; G8987; G8988; J0131; J0690; J1030; J1100; J1644; J1885; J2360; J2405; J2710; J3010; J3370; J7030; J7050; J7120; J7509